=== PATIENT | male | born 1955 | race Caucasian/White ===

== ENCOUNTER 2018-10-15 14:01 | Emergency (ER) | payer MEDICARE ==
[2018-10-15] MEDS ORDERED: KETOROLAC 30 MG/ML 1 ML VIAL IVP STA (14:49)
[2018-10-15] MEDS ORDERED: ONDANSETRON 4 MG/2 ML VIAL IVP STA (14:49)
[2018-10-15] MEDS ORDERED: SODIUM CHLORIDE 0.9% 1,000 ML IV STA (14:49)
--- NOTE | 2018-10-15 14:53 | ED ---
General Adult HPI - General Stated complaint: Flank pain Time Seen by Provider: 10/15/18 14:05 Source: RN notes reviewed - History of Present Illness Initial comments: This is a 62-year-old male who has a past medical history significant for kidney stone. Patient comes in today with left flank pain going up up to the CVA area on the right. Patient states it made him nauseated and he has been vomiting. Patient states the same pain he had when he had a kidney stone a few years ago. Patient denies any diarrhea. Patient denies any anterior abdominal pain. Patient denies any fever chills per patient denies chest pain difficulty breathing or shortness of breath. Patient denies any dysuria hematuria urinary frequency. - Related Data Home Medications Medication Instructions Recorded Confirmed Omeprazole 40 mg PO AC-BRKFST 07/12/14 10/15/18 Aspirin EC [Ecotrin Low Dose] 81 mg PO DAILY 10/15/18 10/15/18 [place]-3 Fatty Acids/Fish Oil [Fish 1 cap PO DAILY 10/15/18 10/15/18 Oil 1,000 mg Softgel] Warfarin [Coumadin] 5 mg PO SUMOTUTHFRSA 10/15/18 10/15/18 Previous Rx's Medication Instructions Recorded Ketorolac [Toradol] 10 mg PO Q6HR #15 tab 10/15/18 Ondansetron Odt [Zofran Odt] 4 mg PO Q8HR PRN #10 tab 10/15/18 Tamsulosin [Flomax] 0.4 mg PO DAILY #10 cap 10/15/18 Allergies Allergy/AdvReac Type Severity Reaction Status Date / Time Penicillins Allergy Unknown Verified 10/15/18 14:56 Review of Systems ROS Statement: Those systems with pertinent positive or pertinent negative responses have been documented in the HPI. ROS Other: All systems not noted in ROS Statement are negative. Past Medical History Past Medical History: COPD, GERD/Reflux Additional Past Medical History / Comment(s): DYSPHAGIA, RECENT BRONCHITIS History of Any Multi-Drug Resistant Organisms: None Reported Past Surgical History: Orthopedic Surgery Additional Past Surgical History / Comment(s): ORIF RIGHT WRIST Past Anesthesia/Blood Transfusion Reactions: No Reported Reaction Past Psychological History: No Psychological Hx Reported Smoking Status: Former smoker Past Alcohol Use History: None Reported, Occasional Past Drug Use History: None Reported General Exam - General Exam Comments Initial Comments: GENERAL: Patient is well-developed and well-nourished. Patient is nontoxic and well- hydrated and is in moderate distress. ENT: Neck is soft and supple. No significant lymphadenopathy is noted. Oropharynx i s clear. Moist mucous membranes. Neck has full range of motion without eliciting any pain. EYES: The sclera were anicteric and conjunctiva were pink and moist. Extraocular movements were intact and pupils were equal round and reactive to light. Eyelids were unremarkable. PULMONARY: Unlabored respirations. Good breath sounds bilaterally. No audible rales rhonchi or wheezing was noted. CARDIOVASCULAR: There is a regular rate and rhythm without any murmurs gallops or rubs. ABDOMEN: Soft and nontender with normal bowel sounds. SKIN: Skin is clear with no lesions or rashes and otherwise unremarkable. NEUROLOGIC: Patient is alert and oriented x3. Cranial nerves II through XII are grossly intact. Motor and sensory are also intact. Normal speech, volume and content. Symmetrical smile. MUSCULOSKELETAL: Normal extremities with adequate strength and full range of motion. LYMPHATICS: No significant lymphadenopathy is noted PSYCHIATRIC: Normal psychiatric evaluation. Course Vital Signs 10/15/18 14:52 Temperature 98 F Pulse Rate 71 Respiratory 18 Rate Blood Pressure 126/84 O2 Sat by Pulse 96 Oximetry Medical Decision Making - Medical Decision Making KUB shows no acute abnormality Patient got Toradol emergency department I reevaluated the patient he was in no pain whatsoever. - Lab Data Result diagrams: 10/15/18 15:05 10/15/18 15:05 Lab Results 10/15/18 10/15/18 10/15/18 Range/Units 15:05 15:05 15:05 WBC 5.3 (3.8-10.6) k/uL RBC 4.32 (4.30-5.90) m/uL Hgb 13.4 (13.0-17.5) gm/dL Hct 40.0 (39.0-53.0) % MCV 92.7 (80.0-100.0) fL MCH 30.9 (25.0-35.0) pg MCHC 33.4 (31.0-37.0) g/dL RDW 13.2 (11.5-15.5) % Plt Count 231 (150-450) k/uL Neutrophils % 65 % Lymphocytes % 24 % Monocytes % 6 % Eosinophils % 2 % Basophils % 1 % Neutrophils # 3.4 (1.3-7.7) k/uL Lymphocytes # 1.3 (1.0-4.8) k/uL Monocytes # 0.3 (0-1.0) k/uL Eosinophils # 0.1 (0-0.7) k/uL Basophils # 0.0 (0-0.2) k/uL Sodium 140 (137-145) mmol/L Potassium 4.1 (3.5-5.1) mmol/L Chloride 109 H (98-107) mmol/L Carbon Dioxide 22 (22-30) mmol/L Anion Gap 9 mmol/L BUN 14 (9-20) mg/dL Creatinine 0.89 (0.66-1.25) mg/dL Est GFR (CKD-EPI)AfAm >90 (>60 ml/min/1.73 sqM) Est GFR (CKD-EPI)NonAf >90 (>60 ml/min/1.73 sqM) Glucose 95 (74-99) mg/dL Calcium 9.3 (8.4-10.2) mg/dL Total Bilirubin 0.6 (0.2-1.3) mg/dL AST 31 (17-59) U/L ALT 33 (21-72) U/L Alkaline Phosphatase 82 (38-126) U/L Total Protein 7.7 (6.3-8.2) g/dL Albumin 4.3 (3.5-5.0) g/dL Amylase 45 (30-110) U/L Lipase 123 (23-300) U/L Urine Color Yellow Urine Appearance Clear (Clear) Urine pH 5.5 (5.0-8.0) Ur Specific [place] 1.025 (1.001-1.035) Urine Protein 1+ H (Negative) Urine Glucose (UA) Negative (Negative) Urine Ketones Negative (Negative) Urine Blood Moderate H (Negative) Urine Nitrite Negative (Negative) Urine Bilirubin Negative (Negative) Urine Urobilinogen <2.0 (<2.0) mg/dL Ur Leukocyte Esterase Negative (Negative) Urine RBC 172 H (0-5) /hpf Urine WBC 2 (0-5) /hpf Urine Mucus Many H (None) /hpf Disposition Clinical Impression: Kidney stone on right side Disposition: HOME SELF-CARE Condition: Good Instructions (If sedation given, give patient instructions): Kidney Stones (ED) Prescriptions: Tamsulosin [Flomax] 0.4 mg PO DAILY #10 cap Ketorolac [Toradol] 10 mg PO Q6HR #15 tab Ondansetron Odt [Zofran Odt] 4 mg PO Q8HR PRN #10 tab PRN Reason: Nausea Is patient prescribed a controlled substance at d/c from ED?: No Referrals: Gregory Giron MD [Primary Care Provider] - 1-2 days Time of Disposition: 15:50
[2018-10-15 14:55] VITALS: BP 126/84; TEMP 98
[2018-10-15 15:25] LABS: Basophils % (A) 1 %; Eosinophils # (A) 0.1 k/uL (0-0.7); Eosinophils % (A) 2 %; HGB 13.4 gm/dL (13.0-17.5); Lymphocytes # (A) 1.3 k/uL (1.0-4.8); Lymphocytes % (A) 24 %; MCH 30.9 pg (25.0-35.0); MCHC 33.4 g/dL (31.0-37.0); MCV 92.7 fL (80.0-100.0); Monocytes # (A) 0.3 k/uL (0-1.0); Monocytes % (A) 6 %; Neutrophils # (A) 3.4 k/uL (1.3-7.7); Neutrophils % (A) 65 %; Platelet Count 231 k/uL (150-450); RBC 4.32 m/uL (4.30-5.90); RDW 13.2 % (11.5-15.5); WBC 5.3 k/uL (3.8-10.6)
[2018-10-15 15:29] LABS: Appearance,Urine Clear (Clear); Bilirubin,Urine Negative (Negative); Blood,Urine Moderate (Negative); Color,Urine Yellow; Glucose,Urine (UA) Negative (Negative); Ketones,Urine Negative (Negative); Leukocyte Esterase,Urine Negative (Negative); Mucus,Urine Many /hpf; Nitrite,Urine Negative (Negative); PH, Urine 5.5 (5.0-8.0); Protein,Urine 1+ (Negative); RBC,Urine 172 /hpf (0-5); Specific Gravity,Urine 1.025 (1.001-1.035); Urobilinogen,Urine <2.0 mg/dL (<2.0); WBC,Urine 2 /hpf (0-5)
[2018-10-15 15:44] LABS: ALT 33 U/L (21-72); AST 31 U/L (17-59); African American GFR (CKD) >90 (>60 ml/min/1.73 sqM); Albumin 4.3 g/dL (3.5-5.0); Alkaline Phosphatase 82 U/L (38-126); Amylase 45 U/L (30-110); Anion Gap 9 mmol/L; Blood Urea Nitrogen 14 mg/dL (9-20); Calcium 9.3 mg/dL (8.4-10.2); Carbon Dioxide 22 mmol/L (22-30); Chloride 109 mmol/L (98-107); Glucose 95 mg/dL (74-99); Lipase 123 U/L (23-300); Potassium 4.1 mmol/L (3.5-5.1); Sodium 140 mmol/L (137-145); Total Bilirubin 0.6 mg/dL (0.2-1.3); Total Protein 7.7 g/dL (6.3-8.2)
--- NOTE | 2018-10-15 15:53 | XR ---
EXAMINATION TYPE: XR KUB DATE OF EXAM: 10/15/2018 COMPARISON: 11/14/2014 HISTORY: Right flank pain TECHNIQUE: 2 views upright FINDINGS: There is no sign of intestinal obstruction or pneumoperitoneum. Fecal pattern is normal. Th ere is a 1 cm calcification over the right mid abdomen that is over the lower pole right kidney. Ther e is mild infiltrate and atelectasis at the right lung base. IMPRESSION: Calcification on the right side. Proximal right ureteral calculus not excluded. Right bas ilar atelectasis. No free air.
[2018-10-15 16:44] VITALS: PULSE 60; RESP 16
== END 2018-10-15 16:57 | disposition home or self-care (01) ==
LOC: EC 14:01
DX: N20.0 Calculus of kidney (principal); K21.9 Gastro-esophageal reflux disease without esophagitis; Z87.891 Personal history of nicotine dependence; Z79.01 Long term (current) use of anticoagulants; Z79.82 Long term (current) use of aspirin; Z79.899 Other long term (current) drug therapy; Z88.0 Allergy status to penicillin
CPT/HCPCS: 36415; 80053; 82150; 83690; 85025; 81001; 74018; 99284; 96374; 96375; 96361; J2405; J1885

== ENCOUNTER 2018-12-26 11:30 | Emergency (ER) | payer MEDICARE ==
[2018-12-26 11:58] VITALS: TEMP 98
--- NOTE | 2018-12-26 11:59 | ED ---
URI HPI - General Chief Complaint: Upper Respiratory Infection Stated Complaint: Cough/congestion Time Seen by Provider: 12/26/18 11:59 Source: patient Mode of arrival: ambulatory Limitations: no limitations - History of Present Illness Initial Comments: 63-year-old male presented for chief complaint of sinus pressure, cough congestion 9 days. Patient states her roughly about the past 9-10 days he has had persisting cough. He states at times is productive mostly dry. Patient denies any medications. Patient states also that around the time that the cough began he had some ear pressure sinus pressure and a sore throat. He states the symptoms have subsided aside from the congestion of the nares and the cough. Patient states he has not been coughing up blood he denies any chest pain or shortness of breath. Patient states she has been seen by his primary care provider and prescribed medications which she is unsure what they are. He states he has not been giving any steroids butwas given a cough suppressant he believes it containing codeine. Patient states that this prescription was $50 he is unable to fill it. Patient presents today for persisting cough. Patient denies any recent travel leg swelling arm pain back pain neck stiffness or fevers. Remaining review of system negative. Upon arrival patient appears well signs of acute distress vital signs within acceptable limits - Related Data Home Medications Medication Instructions Recorded Confirmed Omeprazole 40 mg PO HS 07/12/14 12/26/18 Aspirin EC [Ecotrin Low Dose] 81 mg PO HS 10/15/18 12/26/18 [place]-3 Fatty Acids/Fish Oil [Fish 1 cap PO HS 10/15/18 12/26/18 Oil 1,000 mg Softgel] Warfarin [Coumadin] 5 mg PO SUMOTUTHFRSA@2100 10/15/18 12/26/18 Previous Rx's Medication Instructions Recorded Azithromycin [Zithromax Z-pack] 0 mg PO DIRECTED #6 tab 12/26/18 Benzonatate [Tessalon Perles] 100 mg PO TID 7 Days #21 cap 12/26/18 predniSONE 20 mg PO BID 4 Days #8 tab 12/26/18 Allergies Allergy/AdvReac Type Severity Reaction Status Date / Time Penicillins Allergy Unknown Verified 12/26/18 12:21 Review of Systems ROS Statement: Those systems with pertinent positive or pertinent negative responses have been documented in the HPI. ROS Other: All systems not noted in ROS Statement are negative. Past Medical History Past Medical History: COPD, GERD/Reflux Additional Past Medical History / Comment(s): DYSPHAGIA, RECENT BRONCHITIS History of Any Multi-Drug Resistant Organisms: None Reported Past Surgical History: Orthopedic Surgery Additional Past Surgical History / Comment(s): ORIF RIGHT WRIST Past Anesthesia/Blood Transfusion Reactions: No Reported Reaction Past Psychological History: No Psychological Hx Reported Smoking Status: Former smoker Past Alcohol Use History: Occasional Past Drug Use History: None Reported General Exam - General Exam Comments Initial Comments: General: The patient is awake and alert, in no distress, and does not appear acutely ill. Eye: +3 mm pupils are equal, round and reactive to light, extra-ocular movements are intact. No nystagmus. There is normal conjunctiva bilaterally. No signs of icterus. No photophobia Ears, nose, mouth and throat: There are moist mucous membranes and no oral lesions. Oropharynx was not erythematous there is no tonsillar enlargement exudates or lesions. Uvula midline. Tympanic membranes are not erythematous or is no effusions bulging or retraction. No tenderness to palpation of the mastoid. No anterior cervical lymphadenopathy. Rhinorrhea, clear and bilateral nares. No tripoding, no drooling. Neck: The neck is supple, there is no tenderness or JVD. No nuchal rigidity negative Cardiovascular: There is a regular rate and rhythm. No murmur, rub or gallop is appreciated. Respiratory: Respirations are non-labored, breath sounds are equal. Minimal but present expiratory wheeze. No noted stridor, rales, or rhonchi. No retractions or abdominal breathing. Gastrointestinal: Soft, non-distended, non-tender abdomen without masses or organomegaly noted. There is no rebound or guarding present. Bowel sounds are unremarkable. Musculoskeletal: Normal ROM, no tenderness. Strength 5/5. Sensation intact. Radial pulses equal bilaterally 2+. Neurological: A&O x 3. CN II-XII intact grossly, There are no obvious motor or sensory deficits. Coordination appears grossly intact. Speech appears normal, no muffling. Skin: Skin is warm and dry and no rashes or lesions are noted. No extremity edema Psychiatric: Cooperative Limitations: no limitations Course Vital Signs 12/26/18 12/26/18 12/26/18 11:56 13:31 13:37 Temperature 98.0 F Pulse Rate 73 76 80 Respiratory 18 Rate Blood Pressure 124/85 O2 Sat by Pulse 98 Oximetry 12/26/18 14:00 Temperature 98.0 F Pulse Rate 88 Respiratory 20 Rate Blood Pressure 126/78 O2 Sat by Pulse 97 Oximetry Medical Decision Making - Medical Decision Making 63-year-old male who is obvious upper respiratory symptoms including cough on exam as well as nasal congestion presented for evaluation of persistent cough. Patient states she did have a sore throat and ear pressure at the onset of the cough. Patient's lung sounds are mostly clear aside from a slight expiratory wheeze. Patient is given 1 DuoNeb treatment and this resolved. Patient does state his history of COPD. Patient has been afebrile. No leukocytosis. Chest x-ray does not appear to have good inspiration however there is signs consistent with a possible bronchitis versus asthma versus atypical pneumonia. Patient be started on azithromycin. I have more suspicion towards bronchitis rather than pneumonia though at this time. Patient is provided [facility] on the emergency department and given outpatient prescription for prednisone. In addition patient is provided prescription for Tessalon Perles as I feel this is more economically feasible as patient cannot afford the promethazine with codeine previously prescribed by his primary care provider. Patient denies a chest pain or shortness of breath there is no leg swelling on examination no irregular heart rhythm appreciated. Patient does appear slightly subtherapeutic on his Coumadin. Recommended primary care follow-up. After discussing casement any provider Dr. Doherty with the patient still for discharge with outpatient primary care follow-up. Patient is agreeable to this care plan discharge at this time. - Lab Data Result diagrams: 12/26/18 12:30 12/26/18 12:30 Lab Results 12/26/18 12/26/18 12/26/18 Range/Units 12:30 12:30 12:30 WBC 6.4 (3.8-10.6) k/uL RBC 4.71 (4.30-5.90) m/uL Hgb 14.6 (13.0-17.5) gm/dL Hct 42.9 (39.0-53.0) % MCV 91.1 (80.0-100.0) fL MCH 31.0 (25.0-35.0) pg MCHC 34.0 (31.0-37.0) g/dL RDW 12.6 (11.5-15.5) % Plt Count 279 (150-450) k/uL Neutrophils % 61 % Lymphocytes % 28 % Monocytes % 7 % Eosinophils % 1 % Basophils % 1 % Neutrophils # 3.9 (1.3-7.7) k/uL Lymphocytes # 1.8 (1.0-4.8) k/uL Monocytes # 0.4 (0-1.0) k/uL Eosinophils # 0.1 (0-0.7) k/uL Basophils # 0.1 (0-0.2) k/uL PT 16.6 H (9.0-12.0) sec INR 1.7 H (<1.2) Sodium 139 (137-145) mmol/L Potassium 4.4 (3.5-5.1) mmol/L Chloride 104 (98-107) mmol/L Carbon Dioxide 25 (22-30) mmol/L Anion Gap 10 mmol/L BUN 14 (9-20) mg/dL Creatinine 0.93 (0.66-1.25) mg/dL Est GFR (CKD-EPI)AfAm >90 (>60 ml/min/1.73 sqM) Est GFR (CKD-EPI)NonAf 88 (>60 ml/min/1.73 sqM) Glucose 77 (74-99) mg/dL Calcium 9.8 (8.4-10.2) mg/dL Disposition Clinical Impression: Upper respiratory infection, Cough, Congested nose Disposition: HOME SELF-CARE Condition: Good Instructions (If sedation given, give patient instructions): Upper Respiratory Infection (ED) Additional Instructions: Please use medication as discussed. Please follow-up with family doctor in the next 2 days.. Please return to emergency room if the symptoms increase or worsen or for any other concerns. Prescriptions: predniSONE 20 mg PO BID 4 Days #8 tab Benzonatate [Tessalon Perles] 100 mg PO TID 7 Days #21 cap Azithromycin [Zithromax Z-pack] 0 mg PO DIRECTED #6 tab Is patient prescribed a controlled substance at d/c from ED?: No Referrals: Gregory Giron MD [Primary Care Provider] - 1-2 days Time of Disposition: 14:06
[2018-12-26 12:44] LABS: Basophils # (A) 0.1 k/uL (0-0.2); Basophils % (A) 1 %; Eosinophils # (A) 0.1 k/uL (0-0.7); Eosinophils % (A) 1 %; HCT 42.9 % (39.0-53.0); HGB 14.6 gm/dL (13.0-17.5); Lymphocytes # (A) 1.8 k/uL (1.0-4.8); Lymphocytes % (A) 28 %; MCV 91.1 fL (80.0-100.0); Mean Platelet Volume 6.2; Monocytes # (A) 0.4 k/uL (0-1.0); Monocytes % (A) 7 %; Neutrophils # (A) 3.9 k/uL (1.3-7.7); Neutrophils % (A) 61 %; Platelet Count 279 k/uL (150-450); RBC 4.71 m/uL (4.30-5.90); RDW 12.6 % (11.5-15.5); WBC 6.4 k/uL (3.8-10.6)
[2018-12-26 12:49] LABS: INR 1.7 (<1.2); Prothrombin Time 16.6 sec (9.0-12.0)
[2018-12-26 12:54] LABS: African American GFR (CKD) >90 (>60 ml/min/1.73 sqM); Anion Gap 10 mmol/L; Blood Urea Nitrogen 14 mg/dL (9-20); Calcium 9.8 mg/dL (8.4-10.2); Carbon Dioxide 25 mmol/L (22-30); Chloride 104 mmol/L (98-107); Glucose 77 mg/dL (74-99); Potassium 4.4 mmol/L (3.5-5.1); Sodium 139 mmol/L (137-145)
--- NOTE | 2018-12-26 13:17 | XR ---
EXAMINATION TYPE: XR chest 2V DATE OF EXAM: 12/26/2018 COMPARISON: None HISTORY: 63-year-old male persistent productive cough, rule out pneumonia TECHNIQUE: PA and lateral views FINDINGS: Heart normal size. Aorta and pulmonary vasculature within normal limits. Strandy areas of atelectasis mid and lower lungs. Interstitial prominence. No consolidation or pleural effusion. IMPRESSION: Interstitial densities could reflect bronchitis, asthma, or atypical pneumonias. Strandy atelectasis in the lower lungs.
[2018-12-26] MEDS ORDERED: IPRATROPIUM-ALBUTEROL 3 ML NEB INHALATION STA (13:24)
[2018-12-26] MEDS ORDERED: methylPREDNISolone SOD SUCCI 125 MG/2 ML VIAL IV STA (13:24)
[2018-12-26 14:23] VITALS: BP 126/78; PULSE 88; RESP 20
== END 2018-12-26 14:24 | disposition home or self-care (01) ==
LOC: EC 11:30
DX: J06.9 Acute upper respiratory infection, unspecified (principal); K21.9 Gastro-esophageal reflux disease without esophagitis; Z87.891 Personal history of nicotine dependence; Z88.0 Allergy status to penicillin; Z79.01 Long term (current) use of anticoagulants; Z79.82 Long term (current) use of aspirin; Z79.899 Other long term (current) drug therapy
CPT/HCPCS: 36415; 94640; 80048; 85025; 85610; 71046; 99284; 96374; J2930

== ENCOUNTER 2021-01-06 17:00 | Observation (INO) | payer MEDICARE ==
[2021-01-06] MEDS ORDERED: SODIUM CHLORIDE 0.9% 1,000 ML IV STA (18:38)
[2021-01-06] MEDS ORDERED: ACETAMINOPHEN TAB 500 MG TAB PO STA (18:39)
--- NOTE | 2021-01-06 18:42 | ED ---
General Adult HPI - General Chief complaint: Weakness Stated complaint: Wants covid test Time Seen by Provider: 01/06/21 18:25 Source: patient, RN notes reviewed Mode of arrival: ambulatory Limitations: no limitations - History of Present Illness Initial comments: Patient is a pleasant 65-year-old male presenting to the emergency department for fatigue and concern for possible COVID-19 infection. Onset of symptoms was several days ago. Patient feels weak all over and fatigued. Patient has myalgias. Patient has chills and believes he is having fevers. Mild cough. Patient does have headaches. No loss of taste or smell. - Related Data Home Medications Medication Instructions Recorded Confirmed Aspirin EC [Ecotrin Low Dose] 81 mg PO HS 10/15/18 01/06/21 [place]-3 Fatty Acids/Fish Oil [Fish 1 cap PO HS 10/15/18 01/06/21 Oil 1,000 mg Softgel] Warfarin [Coumadin] 5 mg PO SUMOTUTHFRSA@2100 10/15/18 01/06/21 Omeprazole Magnesium [PriLOSEC OTC] 20 mg PO HS 01/06/21 01/06/21 Allergies Allergy/AdvReac Type Severity Reaction Status Date / Time Penicillins Allergy Unknown Verified 01/06/21 20:14 Review of Systems ROS Statement: Those systems with pertinent positive or pertinent negative responses have been documented in the HPI. ROS Other: All systems not noted in ROS Statement are negative. Constitutional: Reports: as per HPI, chills Eyes: Denies: eye pain ENT: Denies: ear pain Respiratory: Reports: as per HPI Endocrine: Reports: fatigue Gastrointestinal: Denies: abdominal pain Genitourinary: Denies: dysuria Skin: Denies: rash Neurological: Reports: as per HPI, headache Past Medical History Past Medical History: COPD, GERD/Reflux Additional Past Medical History / Comment(s): DYSPHAGIA, RECENT BRONCHITIS History of Any Multi-Drug Resistant Organisms: None Reported Past Surgical History: Orthopedic Surgery Additional Past Surgical History / Comment(s): ORIF RIGHT WRIST Past Anesthesia/Blood Transfusion Reactions: No Reported Reaction Past Psychological History: No Psychological Hx Reported Smoking Status: Former smoker Past Alcohol Use History: Occasional Past Drug Use History: None Reported General Exam Limitations: no limitations General appearance: alert, in no apparent distress Head exam: Present: normocephalic Eye exam: Present: normal appearance, PERRL, EOMI ENT exam: Present: normal oropharynx Neck exam: Present: normal inspection. Absent: tenderness, meningismus Respiratory exam: Present: normal lung sounds bilaterally Cardiovascular Exam: Present: tachycardia GI/Abdominal exam: Present: soft. Absent: tenderness Extremities exam: Present: normal inspection. Absent: pedal edema, calf tenderness Neurological exam: Present: alert Psychiatric exam: Present: normal affect, normal mood Skin exam: Present: normal color Course Vital Signs 01/06/21 01/06/21 17:58 19:30 Temperature 99.5 F 101.9 F H Pulse Rate 117 H 114 H Respiratory 20 22 Rate Blood Pressure 137/84 108/71 O2 Sat by Pulse 94 L 92 L Oximetry EKG Findings - EKG Comments: EKG Findings:: Sinus tachycardia with a rate of 118. ME 168. QRS 88. QT 298. QTC 417. Normal axis. Normal QRS. Repolarization changes. Medical Decision Making - Medical Decision Making Patient reevaluated and is feeling better following fluids and Tylenol. Patient updated on results and plan. Case was again discussed with Dr. River who did review the EKG and feels likely repolarization changes versus pericarditis. He does not recommend further anticoagulation at this time. Patient states he does occasionally drink alcohol. Ultrasound will be ordered to evaluate for possible bladder disease. Case was also discussed with Dr. Giron, who will admit his patient. - Lab Data Result diagrams: 01/06/21 18:55 01/06/21 18:55 Lab Results 01/06/21 01/06/21 01/06/21 Range/Units 18:55 18:55 18:55 WBC 12.1 H (3.8-10.6) k/uL RBC 4.64 (4.30-5.90) m/uL Hgb 15.4 (13.0-17.5) gm/dL Hct 45.5 (39.0-53.0) % MCV 97.9 (80.0-100.0) fL MCH 33.3 (25.0-35.0) pg MCHC 34.0 (31.0-37.0) g/dL RDW 12.7 (11.5-15.5) % Plt Count 235 (150-450) k/uL MPV 7.2 Neutrophils % 87 % Lymphocytes % 7 % Monocytes % 6 % Eosinophils % 0 % Basophils % 0 % Neutrophils # 10.5 H (1.3-7.7) k/uL Lymphocytes # 0.8 L (1.0-4.8) k/uL Monocytes # 0.7 (0-1.0) k/uL Eosinophils # 0.0 (0-0.7) k/uL Basophils # 0.0 (0-0.2) k/uL PT 16.0 H (9.0-12.0) sec INR 1.6 H (<1.2) APTT 29.5 (22.0-30.0) sec Sodium 132 L (137-145) mmol/L Potassium 4.3 (3.5-5.1) mmol/L Chloride 101 (98-107) mmol/L Carbon Dioxide 19 L (22-30) mmol/L Anion Gap 12 mmol/L BUN 14 (9-20) mg/dL Creatinine 0.96 (0.66-1.25) mg/dL Est GFR (CKD-EPI)AfAm >90 (>60 ml/min/1.73 sqM) Est GFR (CKD-EPI)NonAf 84 (>60 ml/min/1.73 sqM) Glucose 129 H (74-99) mg/dL Plasma Lactic Acid Josef (0.7-2.0) mmol/L Calcium 9.6 (8.4-10.2) mg/dL Total Bilirubin 2.6 H (0.2-1.3) mg/dL AST 77 H (17-59) U/L ALT 89 H (4-49) U/L Alkaline Phosphatase 157 H (38-126) U/L Troponin I (0.000-0.034) ng/mL Total Protein 8.0 (6.3-8.2) g/dL Albumin 4.3 (3.5-5.0) g/dL Coronavirus (PCR) (Not Detectd) 01/06/21 01/06/21 01/06/21 Range/Units 18:55 18:55 18:59 WBC (3.8-10.6) k/uL RBC (4.30-5.90) m/uL Hgb (13.0-17.5) gm/dL Hct (39.0-53.0) % MCV (80.0-100.0) fL MCH (25.0-35.0) pg MCHC (31.0-37.0) g/dL RDW (11.5-15.5) % Plt Count (150-450) k/uL MPV Neutrophils % % Lymphocytes % % Monocytes % % Eosinophils % % Basophils % % Neutrophils # (1.3-7.7) k/uL Lymphocytes # (1.0-4.8) k/uL Monocytes # (0-1.0) k/uL Eosinophils # (0-0.7) k/uL Basophils # (0-0.2) k/uL PT (9.0-12.0) sec INR (<1.2) APTT (22.0-30.0) sec Sodium (137-145) mmol/L Potassium (3.5-5.1) mmol/L Chloride (98-107) mmol/L Carbon Dioxide (22-30) mmol/L Anion Gap mmol/L BUN (9-20) mg/dL Creatinine (0.66-1.25) mg/dL Est GFR (CKD-EPI)AfAm (>60 ml/min/1.73 sqM) Est GFR (CKD-EPI)NonAf (>60 ml/min/1.73 sqM) Glucose (74-99) mg/dL Plasma Lactic Acid Josef 1.2 (0.7-2.0) mmol/L Calcium (8.4-10.2) mg/dL Total Bilirubin (0.2-1.3) mg/dL AST (17-59) U/L ALT (4-49) U/L Alkaline Phosphatase (38-126) U/L Troponin I 0.370 H* (0.000-0.034) ng/mL Total Protein (6.3-8.2) g/dL Albumin (3.5-5.0) g/dL Coronavirus (PCR) Not Detected (Not Detectd) - Radiology Data Radiology results: image reviewed (Chest x-ray shows no acute process. Atel ectasis) Disposition Clinical Impression: Fever Disposition: ADMITTED IP TO THIS [facility] Condition: Serious Is patient prescribed a controlled substance at d/c from ED?: No Referrals: Gregory Giron MD [Primary Care Provider] - 1-2 days Decision Time: 20:21
[2021-01-06 19:08] LABS: Basophils % (A) 0 %; Eosinophils % (A) 0 %; HCT 45.5 % (39.0-53.0); HGB 15.4 gm/dL (13.0-17.5); Lymphocytes # (A) 0.8 k/uL (1.0-4.8); Lymphocytes % (A) 7 %; MCH 33.3 pg (25.0-35.0); MCV 97.9 fL (80.0-100.0); Mean Platelet Volume 7.2; Monocytes # (A) 0.7 k/uL (0-1.0); Monocytes % (A) 6 %; Neutrophils # (A) 10.5 k/uL (1.3-7.7); Neutrophils % (A) 87 %; Platelet Count 235 k/uL (150-450); RBC 4.64 m/uL (4.30-5.90); RDW 12.7 % (11.5-15.5); WBC 12.1 k/uL (3.8-10.6)
[2021-01-06 19:16] LABS: ALT 89 U/L (4-49); AST 77 U/L (17-59); African American GFR (CKD) >90 (>60 ml/min/1.73 sqM); Albumin 4.3 g/dL (3.5-5.0); Alkaline Phosphatase 157 U/L (38-126); Anion Gap 12 mmol/L; Blood Urea Nitrogen 14 mg/dL (9-20); Calcium 9.6 mg/dL (8.4-10.2); Carbon Dioxide 19 mmol/L (22-30); Chloride 101 mmol/L (98-107); Glucose 129 mg/dL (74-99); Non-African American GFR(CKD) 84 (>60 ml/min/1.73 sqM); Potassium 4.3 mmol/L (3.5-5.1); Sodium 132 mmol/L (137-145); Total Bilirubin 2.6 mg/dL (0.2-1.3)
[2021-01-06 19:23] LABS: INR 1.6 (<1.2); Partial Thromboplastin Time 29.5 sec (22.0-30.0)
--- NOTE | 2021-01-06 19:25 | XR ---
EXAMINATION TYPE: XR chest 2V DATE OF EXAM: 01/06/2021 COMPARISON: 12/26/2018 HISTORY: Weakness TECHNIQUE: FINDINGS: Heart is normal. Lungs are clear of infiltrate. There is no heart failure. There is some mi ld atelectasis at the lung bases. There are no hilar masses. Bony thorax is intact. . IMPRESSION: There is some mild atelectasis at the lung bases which is new compared to old exam
[2021-01-06] MEDS ORDERED: LEVOFLOXACIN 750MG-D5W PMX 750 MG in DEXTROSE/WATER 1 150ML.BAG IVPB STA (20:23)
[2021-01-06] MEDS ORDERED: NALOXONE 0.4 MG/ML 1 ML VIAL IV PRN (20:25)
[2021-01-06] MEDS ORDERED: LEVOFLOXACIN 750MG-D5W PMX 750 MG in DEXTROSE/WATER 1 150ML.BAG IVPB SCH (20:30)
[2021-01-06] MEDS: SODIUM CHLORIDE 0.9% 1,000 ML IV SCH (20:53)
--- NOTE | 2021-01-06 21:16 | US ---
EXAMINATION TYPE: US gallbladder DATE OF EXAM: 01/06/2021 COMPARISON: 11/14/2014 CLINICAL HISTORY: Fever with elevated liver enzymes. Difficult and limited exam due to overlying lacho l gas EXAM MEASUREMENTS: Liver Length: 17.8 cm Gallbladder Wall: 0.2 cm CBD: 0.5 cm Right Kidney: 10.7 x 5.2 x 5.2 cm Pancreas: Obscured by bowel gas Liver: Increased attenuation, decreased visualization of vessels suggestive of fatty infiltrate. Hyp oechoic area adjacent to the gallbladder measuring 1.6 cm, probable fatty focal sparring Gallbladder: No stones visualized Evidence for sonographic Townsend's sign: No CBD: wnl as visualized, distal portion is obscured by bowel gas Right Kidney: No hydronephrosis or masses seen IMPRESSION: No gallstones or dilated ducts. No focal liver defect.
[2021-01-07] MEDS: IBUPROFEN 400 MG TAB PO PRN (00:03)
[2021-01-07 04:13] LABS: Basophils % (A) 0 %; Eosinophils # (A) 0.1 k/uL (0-0.7); Eosinophils % (A) 1 %; HCT 40.1 % (39.0-53.0); HGB 12.9 gm/dL (13.0-17.5); Lymphocytes # (A) 0.8 k/uL (1.0-4.8); Lymphocytes % (A) 8 %; MCHC 32.2 g/dL (31.0-37.0); MCV 99.2 fL (80.0-100.0); Mean Platelet Volume 8.5; Monocytes # (A) 0.7 k/uL (0-1.0); Monocytes % (A) 7 %; Neutrophils # (A) 8.6 k/uL (1.3-7.7); Neutrophils % (A) 83 %; Platelet Count 184 k/uL (150-450); RBC 4.04 m/uL (4.30-5.90); RDW 12.7 % (11.5-15.5); WBC 10.4 k/uL (3.8-10.6)
[2021-01-07 04:30] LABS: Albumin 3.6 g/dL (3.5-5.0); Calcium 8.8 mg/dL (8.4-10.2)
[2021-01-07 07:44] LABS: Appearance,Urine Cloudy (Clear); Bilirubin,Urine 1+ (Negative); Blood,Urine Negative (Negative); Color,Urine Light Brown; Glucose,Urine (UA) Trace (Negative); Hyaline Casts,Urine 359 /lpf (0-2); Ketones,Urine Negative (Negative); Leukocyte Esterase,Urine Negative (Negative); Mucus,Urine Many /hpf; Nitrite,Urine Negative (Negative); PH, Urine 5.5 (5.0-8.0); Protein,Urine 2+ (Negative); RBC,Urine 20 /hpf (0-5); Specific Gravity,Urine 1.034 (1.001-1.035); Urobilinogen,Urine >12.0 mg/dL (<2.0); WBC,Urine 18 /hpf (0-5)
--- NOTE | 2021-01-07 09:58 | ECHOF ---
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 This was a technically good study. The left ventricular size is normal. There is borderline concentric left ventricular hypertrophy. Overall left ventricular systolic function is normal with, an EF between 60 - 65 %. The right ventricle is mildly enlarged. Normal LA size by volume 22+/-6 ml/m2. The right atrium is normal in size. Interatrial and interventricular septum intact. The aortic valve is trileaflet, and appears structurally normal. No aortic stenosis or regurgitation. The mitral valve is normal. The tricuspid valve appears structurally normal. Unable to estimate RVSP due to inadequate TR jet s pectral doppler profile. The pulmonic valve was not well visualized. The aortic root size is normal. Normal inferior vena cava with normal inspiratory collapse consistent with estimated right atrial pre ssure of 5 mmHg. There is a small, generalized pericardial effusion present. CONCLUSIONS -------- 1. The left ventricular size is normal. 2. There is borderline concentric left ventricular hypertrophy. 3. Overall left ventricular systolic function is normal with, an EF between 60 - 65 %. 4. The right ventricle is mildly enlarged. 5. The aortic valve is trileaflet, and appears structurally normal. No aortic stenosis or regurgitati on. 6. There is a small, generalized pericardial effusion present. PASSENGER TRAIN BRAKER: Doris Park RDCS
[2021-01-07] MEDS: SODIUM CHLORIDE 0.9% 1,000 ML IV SCH ×3 (09:59→20:44)
[2021-01-07] MEDS: PANTOPRAZOLE 40 MG/10 ML VIAL IV SCH (10:00)
[2021-01-07] MEDS: LEVOFLOXACIN 750MG-D5W PMX 750 MG in DEXTROSE/WATER 1 150ML.BAG IVPB SCH (10:00)
--- NOTE | 2021-01-07 10:10 | P.CRDCN ---
History of Present Illness Consult date: 01/07/21 History of present illness: HISTORY OF PRESENT ILLNESS: This is a 65-year-old male with a past medical history significant for DVT/PE on Coumadin, GERD, and occasional alcohol use. Patient denies any previous cardiac history and does not follow regularly with a service desk analyst. We have been asked to see the patient in consultation for cardiac evaluation. Patient examined at the bedside in the emergency room. Patient states he came to the hospital with a chief complaint of a headache. Patient also reports having chest pain and her mainly since Wednesday. He states the pain felt like a pressure in the middle of his chest. He denied any radiation of the pain. He denied any shortness of breath. Patient states the pain is significantly worse with deep inspiration. Patient denies any previous stress test or cardiac catheterization. Patient was also noted to be febrile yesterday with a temperature of 101.9. Patient does have a frequent nonproductive cough at the time of my examination. Testing for influenza A and weems virus were negative. Patient reports a family history of coronary artery disease and states his dad had a heart attack. He is unsure at what age but states his dad when he was around 71 so he believes his dad was fairly young when he had a heart attack. EKG reveals sinus tachycardia with early repolarization Chest xray there is some mild atelectasis at the lung bases which is new compared to old exam. Ultrasound gallbladder: No gallstones or dilated ducts. No focal liver defect. Laboratory data: WBC 10.4. Hemoglobin 12.9. Platelet count 184. Sodium 132. Potassium 4.0. BUN 21. Creatinine 1.26. Bilirubin 3.0. AST 80. ALT 97. Troponin 0.370. 0.371. 0.3-9. Current home cardiac medications include aspirin 81 mg daily and warfarin 5 mg Wednesday and Wednesday REVIEW OF SYSTEMS: At the time of my exam: CONSTITUTIONAL: Denies fever or chills. HEENT: Denies blurred vision, vision changes, or eye pain. Denies hemoptysis CARDIOVASCULAR: Reports chest pain. Denies orthopnea. Denies PND. Denies palpitations RESPIRATORY: Denies shortness of breath. Reports cough. GASTROINTESTINAL: Denies abdominal pain. Denies nausea or vomiting. HEMATOLOGIC: Denies bleeding disorders. GENITOURINARY: Denies any blood in urine. SKIN: Denies pruitis. Denies rash. PHYSICAL EXAM: VITAL SIGNS: Reviewed. GENERAL: Well-developed in no acute distress. HEENT: Head is normocephalic. Pupils are equal, round. Sclerae anicteric. Mucous membranes of the mouth are moist. Neck supple. No JVD or thyromegaly LUNGS: Respirations even and unlabored. Lungs essentially clear to auscultation bilaterally. Frequent coughing noted. HEART: Regular rate and rhythm. S1 and S2 heard. ABDOMEN: Soft. Nondistended. Nontender. EXTREMITIES: Normal range of motion. No clubbing or cyanosis. Peripheral pulses intact. No lower extremity edema NEUROLOGIC: Awake and alert. Oriented x 3. ASSESSMENT: Headache Febrile illness Abnormal troponins, can not rule out underlying CAD Acute kidney injury Elevated bilirubin Elevated LFTs History of DVT/PE, on Coumadin GERD Occasional alcohol use PLAN: Obtain 2D echo to assess cardiac structure and function Check INR. Continue anticoagulation with Coumadin. Check D-Dimer Continue IV fluids Further recommendations pending patient course Nurse practitioner note has been reviewed by physician. Signing provider agrees with the documented findings, assessment, and plan of care. Past Medical History Past Medical History: COPD, GERD/Reflux Additional Past Medical History / Comment(s): DYSPHAGIA, RECENT BRONCHITIS History of Any Multi-Drug Resistant Organisms: None Reported Past Surgical History: Orthopedic Surgery Additional Past Surgical History / Comment(s): ORIF RIGHT WRIST Past Anesthesia/Blood Transfusion Reactions: No Reported Reaction Past Psychological History: No Psychological Hx Reported Smoking Status: Former smoker Past Alcohol Use History: Occasional Past Drug Use History: None Reported Medications and Allergies Home Medications Medication Instructions Recorded Confirmed Type Aspirin EC [Ecotrin Low Dose] 81 mg PO HS 10/15/18 01/06/21 History [place]-3 Fatty Acids/Fish Oil [Fish 1 cap PO HS 10/15/18 01/06/21 History Oil 1,000 mg Softgel] Warfarin [Coumadin] 5 mg PO SUMOTUTHFRSA@2100 10/15/18 01/06/21 History Omeprazole Magnesium [PriLOSEC OTC] 20 mg PO HS 01/06/21 01/06/21 History Allergies Allergy/AdvReac Type Severity Reaction Status Date / Time Penicillins Allergy Unknown Verified 01/06/21 20:14 Physical Exam Vitals: Vital Signs Temp Pulse Resp BP Pulse Ox 01/07/21 06:00 98.9 F 88 16 94/72 97 01/07/21 03:00 81 18 85/65 95 01/07/21 00:00 82 18 115/73 97 01/06/21 21:40 98/78 01/06/21 21:00 99.6 F 104 H 95 01/06/21 19:30 101.9 F H 114 H 22 108/71 92 L 01/06/21 17:58 99.5 F 117 H 20 137/84 94 L Intake and Output 01/06/21 01/07/21 01/07/21 22:59 06:59 14:59 Other: Weight 106.594 kg Results 01/07/21 03:22 01/07/21 03:22 Cardiac Enzymes 01/06/21 01/06/21 01/06/21 Range/Units 18:55 18:55 22:23 AST 77 H (17-59) U/L Troponin I 0.370 H* 0.371 H* (0.000-0.034) ng/mL 01/07/21 01/07/21 Range/Units 00:58 03:22 AST 80 H (17-59) U/L Troponin I 0.329 H* (0.000-0.034) ng/mL Coagulation 01/06/21 Range/Units 18:55 PT 16.0 H (9.0-12.0) sec APTT 29.5 (22.0-30.0) sec CBC 01/06/21 01/07/21 Range/Units 18:55 03:22 WBC 12.1 H 10.4 (3.8-10.6) k/uL RBC 4.64 4.04 L (4.30-5.90) m/uL Hgb 15.4 12.9 L (13.0-17.5) gm/dL Hct 45.5 40.1 (39.0-53.0) % Plt Count 235 184 (150-450) k/uL Comprehensive Metabolic Panel 01/06/21 01/07/21 Range/Units 18:55 03:22 Sodium 132 L 132 L (137-145) mmol/L Potassium 4.3 4.0 (3.5-5.1) mmol/L Chloride 101 103 (98-107) mmol/L Carbon Dioxide 19 L 20 L (22-30) mmol/L BUN 14 21 H (9-20) mg/dL Creatinine 0.96 1.26 H (0.66-1.25) mg/dL Glucose 129 H 121 H (74-99) mg/dL Calcium 9.6 8.8 (8.4-10.2) mg/dL AST 77 H 80 H (17-59) U/L ALT 89 H 97 H (4-49) U/L Alkaline Phosphatase 157 H 136 H (38-126) U/L Total Protein 8.0 7.0 (6.3-8.2) g/dL Albumin 4.3 3.6 (3.5-5.0) g/dL Current Medications Generic Name Dose Route Start Last Admin Trade Name Freq PRN Reason Stop Dose Admin Acetaminophen 650 mg 01/06/21 20:25 Acetaminophen Tab 325 Mg Tab PO Q6HR PRN Mild Pain or Fever > 100.5 Sodium Chloride 1,000 mls @ 130 mls/hr 01/06/21 20:30 01/07/21 09:59 Saline 0.9% IV 130 mls/hr .[id number] KATIE Administration Levofloxacin 750 mg/ IV 150 mls @ 100 mls/hr 01/07/21 09:00 01/07/21 10:00 Solution IVPB 100 mls/hr Q24H KATIE Administration Ibuprofen 400 mg 01/06/21 20:25 01/07/21 00:03 Ibuprofen 400 Mg Tab PO 400 mg Q6HR PRN Administration Mild Pain or Fever > 100.5 Naloxone HCl 0.2 mg 01/06/21 20:25 Naloxone 0.4 Mg/Ml 1 Ml Vial IV Q2M PRN Opioid Reversal Pantoprazole Sodium 40 mg 01/07/21 09:00 01/07/21 10:00 Pantoprazole 40 Mg/10 Ml Vial IV 40 mg DAILY KATIE Administration Intake and Output 01/06/21 01/07/21 01/07/21 22:59 06:59 14:59 Other: Weight 106.594 kg 01/07/21 03:22 01/07/21 03:22
[2021-01-07 10:23] LABS: INR 1.3 (<1.2); Prothrombin Time 13.7 sec (9.0-12.0)
[2021-01-07] MEDS ORDERED: HEPARIN SODIUM 1,000 UN/ML (10ML VL) IV ONE (10:42)
[2021-01-07] MEDS ORDERED: HEPARIN SODIUM 1,000 UN/ML (10ML VL) IV PRN (10:42)
[2021-01-07] MEDS ORDERED: HEPARIN SOD,PORK IN 0.45% NACL 25,000 UNIT in 0.45% NACL 1 250ML.BAG IV SCH (10:45)
[2021-01-07] MEDS: ACETAMINOPHEN TAB 325 MG TAB PO PRN ×2 (10:48→20:28)
[2021-01-07] MEDS: COLCHICINE 0.6 MG EACH PO SCH ×2 (12:33→22:33)
[2021-01-07] MEDS: ASPIRIN 81 MG PO SCH (12:37)
[2021-01-07] MEDS ORDERED: IOPAMIDOL CONTRAST (ORAL USE) VIAL PO PRN (12:52)
--- NOTE | 2021-01-07 13:34 | P.HPIM ---
History of Present Illness H&P Date: 01/07/21 Chief Complaint: Chest pain The patient is otherwise lucid and speaking clearly.The patient is a 65-year-old white male who complained of significant chest congestion. He was worried about having pneumonia. Previous history of thromboembolism in the past. However, as time went on, he complained of significant substernal chest pressure. No radiation to the neck no significant diaphoresis stated. Question some mild nausea but it was not severe. Evaluation in the emergency room did not show significant pneumonia Covid test was negative but troponin was elevated. The patient is now being evaluated by cardiology. As far as the chest pain is concerned. There is no palliative maneuver or medications stated. Activity was not necessary provocative to the chest pr essure but it was substernal. Review of Systems Constitutional: Denies chills, Denies fever Eyes: denies blurred vision, denies pain Ears, nose, mouth and throat: Denies headache, Denies sore throat Cardiovascular: Reports as per HPI Gastrointestinal: Denies abdominal pain, Denies diarrhea, Denies nausea, Denies vomiting Musculoskeletal: Denies myalgias Integumentary: Denies pruritus, Denies rash Neurological: Denies numbness, Denies weakness Past Medical History Past Medical History: COPD, GERD/Reflux Additional Past Medical History / Comment(s): DYSPHAGIA, RECENT BRONCHITIS History of Any Multi-Drug Resistant Organisms: None Reported Past Surgical History: Orthopedic Surgery Additional Past Surgical History / Comment(s): ORIF RIGHT WRIST Past Anesthesia/Blood Transfusion Reactions: No Reported Reaction Past Psychological History: No Psychological Hx Reported Smoking Status: Former smoker Past Alcohol Use History: Occasional Past Drug Use History: None Reported Medications and Allergies Home Medications Medication Instructions Recorded Confirmed Type Aspirin EC [Ecotrin Low Dose] 81 mg PO HS 10/15/18 01/06/21 History [place]-3 Fatty Acids/Fish Oil [Fish 1 cap PO HS 10/15/18 01/06/21 History Oil 1,000 mg Softgel] Warfarin [Coumadin] 5 mg PO SUMOTUTHFRSA@2100 10/15/18 01/06/21 History Omeprazole Magnesium [PriLOSEC OTC] 20 mg PO HS 01/06/21 01/06/21 History Allergies Allergy/AdvReac Type Severity Reaction Status Date / Time Penicillins Allergy Unknown Verified 01/06/21 20:14 Physical Exam Vitals: Vital Signs Temp Pulse Resp BP Pulse Ox 01/07/21 10:46 101 H 18 139/84 96 01/07/21 06:00 98.9 F 88 16 94/72 97 01/07/21 03:00 81 18 85/65 95 01/07/21 00:00 82 18 115/73 97 01/06/21 21:40 98/78 01/06/21 21:00 99.6 F 104 H 95 01/06/21 19:30 101.9 F H 114 H 22 108/71 92 L 01/06/21 17:58 99.5 F 117 H 20 137/84 94 L Intake and Output 01/06/21 01/07/21 01/07/21 22:59 06:59 14:59 Other: Weight 106.594 kg - Constitutional General appearance: no acute distress - EENT Eyes: EOMI - Neck Neck: no lymphadenopathy - Respiratory Respiratory: bilateral: CTA - Cardiovascular Rhythm: regular Heart sounds: normal: S1, S2 Abnormal Heart Sounds: no S3 Gallop - Gastrointestinal General gastrointestinal: soft, no tenderness - Integumentary Integumentary: no cellulitis - Psychiatric Psychiatric: A&O x's 3 Results CBC & Chem 7: 01/07/21 03:22 01/07/21 03:22 Labs: Abnormal Lab Results - Last 24 Hours (Table) 01/06/21 01/06/21 01/06/21 Range/Units 18:55 18:55 18:55 WBC 12.1 H (3.8-10.6) k/uL RBC (4.30-5.90) m/uL Hgb (13.0-17.5) gm/dL Neutrophils # 10.5 H (1.3-7.7) k/uL Lymphocytes # 0.8 L (1.0-4.8) k/uL PT 16.0 H (9.0-12.0) sec INR 1.6 H (<1.2) D-Dimer (<0.60) mg/L FEU Sodium 132 L (137-145) mmol/L Carbon Dioxide 19 L (22-30) mmol/L BUN (9-20) mg/dL Creatinine (0.66-1.25) mg/dL Glucose 129 H (74-99) mg/dL Total Bilirubin 2.6 H (0.2-1.3) mg/dL AST 77 H (17-59) U/L ALT 89 H (4-49) U/L Alkaline Phosphatase 157 H (38-126) U/L Troponin I (0.000-0.034) ng/mL Urine Protein (Negative) Urine Glucose (UA) (Negative) Urine Bilirubin (Negative) Urine RBC (0-5) /hpf Urine WBC (0-5) /hpf Hyaline Casts (0-2) /lpf Urine Mucus (None) /hpf 01/06/21 01/06/21 01/07/21 Range/Units 18:55 22:23 00:58 WBC (3.8-10.6) k/uL RBC (4.30-5.90) m/uL Hgb (13.0-17.5) gm/dL Neutrophils # (1.3-7.7) k/uL Lymphocytes # (1.0-4.8) k/uL PT (9.0-12.0) sec INR (<1.2) D-Dimer (<0.60) mg/L FEU Sodium (137-145) mmol/L Carbon Dioxide (22-30) mmol/L BUN (9-20) mg/dL Creatinine (0.66-1.25) mg/dL Glucose (74-99) mg/dL Total Bilirubin (0.2-1.3) mg/dL AST (17-59) U/L ALT (4-49) U/L Alkaline Phosphatase (38-126) U/L Troponin I 0.370 H* 0.371 H* 0.329 H* (0.000-0.034) ng/mL Urine Protein (Negative) Urine Glucose (UA) (Negative) Urine Bilirubin (Negative) Urine RBC (0-5) /hpf Urine WBC (0-5) /hpf Hyaline Casts (0-2) /lpf Urine Mucus (None) /hpf 01/07/21 01/07/21 01/07/21 Range/Units 03:22 03:22 07:15 WBC (3.8-10.6) k/uL RBC 4.04 L (4.30-5.90) m/uL Hgb 12.9 L (13.0-17.5) gm/dL Neutrophils # 8.6 H (1.3-7.7) k/uL Lymphocytes # 0.8 L (1.0-4.8) k/uL PT (9.0-12.0) sec INR (<1.2) D-Dimer (<0.60) mg/L FEU Sodium 132 L (137-145) mmol/L Carbon Dioxide 20 L (22-30) mmol/L BUN 21 H (9-20) mg/dL Creatinine 1.26 H (0.66-1.25) mg/dL Glucose 121 H (74-99) mg/dL Total Bilirubin 3.0 H (0.2-1.3) mg/dL AST 80 H (17-59) U/L ALT 97 H (4-49) U/L Alkaline Phosphatase 136 H (38-126) U/L Troponin I (0.000-0.034) ng/mL Urine Protein 2+ H (Negative) Urine Glucose (UA) Trace H (Negative) Urine Bilirubin 1+ H (Negative) Urine RBC 20 H (0-5) /hpf Urine WBC 18 H (0-5) /hpf Hyaline Casts 359 H (0-2) /lpf Urine Mucus Many H (None) /hpf 01/07/ Range/Units 09:09 WBC (3.8-10.6) k/uL RBC (4.30-5.90) m/uL Hgb (13.0-17.5) gm/dL Neutrophils # (1.3-7.7) k/uL Lymphocytes # (1.0-4.8) k/uL PT 13.7 H (9.0-12.0) sec INR 1.3 H (<1.2) D-Dimer 0.60 H (<0.60) mg/L FEU Sodium (137-145) mmol/L Carbon Dioxide (22-30) mmol/L BUN (9-20) mg/dL Creatinine (0.66-1.25) mg/dL Glucose (74-99) mg/dL Total Bilirubin (0.2-1.3) mg/dL AST (17-59) U/L ALT (4-49) U/L Alkaline Phosphatase (38-126) U/L Troponin I (0.000-0.034) ng/mL Urine Protein (Negative) Urine Glucose (UA) (Negative) Urine Bilirubin (Negative) Urine RBC (0-5) /hpf Urine WBC (0-5) /hpf Hyaline Casts (0-2) /lpf Urine Mucus (None) /hpf Microbiology - Last 24 Hours (Table) 01/07/21 07:15 Urine Culture - Preliminary Urine,Clean Catch Assessment and Plan (1) Angina at rest Current Visit: Yes Status: Acute Code(s): I20.8 - OTHER FORMS OF ANGINA PECTORIS SNOMED Code(s): 590547748 (2) Elevated troponin Current Visit: Yes Status: Acute Code(s): R77.8 - OTHER SPECIFIED ABNORMALITIES OF PLASMA PROTEINS SNOMED Code(s): 862256276 (3) Acute kidney injury Current Visit: Yes Status: Acute Code(s): N17.9 - ACUTE KIDNEY FAILURE, UN SPECIFIED SNOMED Code(s): 18664844 (4) Fever Current Visit: Yes Status: Acute Code(s): R50.9 - FEVER, UNSPECIFIED SNOMED Code(s): 912667133 Plan: Rule out type of marker infarction although acute kidney injury could be causing elevated troponin spell. Consult home medications. Await cardiology input. The patient is otherwise a full code. Time with Patient: Greater than 30
--- NOTE | 2021-01-07 15:14 | CT ---
EXAMINATION TYPE: CT abdomen pelvis wo con DATE OF EXAM: 01/07/2021 COMPARISON: 11/14/2014 HISTORY: fever, elevated LFT CT DLP: 1037 mGycm Examination of the solid and hollow viscera is limited given the lack of contrast. FINDINGS: LUNG BASES: No evidence for nodule. Linear basilar atelectasis or parenchymal scarring. Small left ef fusion. LIVER/GB: The gallbladder is unremarkable. No space-occupying hepatic lesion. PANCREAS: No pancreatic mass identified. No inflammatory process seen. SPLEEN: No evidence for splenomegaly. No intrasplenic lesions seen. ADRENALS: No adrenal nodules identified. No evidence for thickening. KIDNEYS: No evidence for renal mass. No nephrolithiasis. No hydronephrosis. BOWEL: Appendix has a normal appearance. No evidence of bowel obstruction. No inflammatory process. Lymph nodes: No evidence for adenopathy greater than 1 cm. 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 Ectasia without aneurysm left c ommon iliac artery. Atheromatous change abdominal aorta without aneurysm. Genital organs: No significant abnormality. Other: No significant abnormality. IMPRESSION: NO SIGNIFICANT ABNORMALITY TO ACCOUNT FOR THE PATIENT'S SYMPTOMS.
[2021-01-07] MEDS ORDERED: WARFARIN 7.5 MG TAB PO ONE (18:00)
[2021-01-07] MEDS ORDERED: WARFARIN 5 MG TAB PO ONE (18:00)
[2021-01-07] MEDS: ONDANSETRON 4 MG/2 ML VIAL IVP PRN (20:54)
--- NOTE | 2021-01-07 23:26 | P.CONS ---
History of Present Illness - Reason for Consult Consult date: 01/07/21 Fever Requesting physician: Gregory Giron - Chief Complaint weakess and body aches x few days - History of Present Illness History of present illness : Patient is 65-year-old male presenting to the ER last night for evaluation of fatigue and possible concern for COVID-19 infection patient symptom has been going on since the wednesday night patient been feeling weak and fatigued all over did have myalgias he did have some chills and a fever however he did not take his temperature patient denies having any headache or URI symptoms denies having any chest pain or shortness of breath he did have a mild cough not bringing up any sputum no nausea no vomiting no abdominal pain no diarrhea no loss of taste or smell patient on presentation to the hospital did have a fever of 101.9 degree form height patient also have a elevated white count of 12.1 with a left shift D-dimer was mildly elevated patient also have a elevated liver enzyme and troponin urine was mildly positive weems PCR came back negative patient did have ultrasound of the gallbladder it was negative for acute abnormality patient was started on heparin per weight- based protocol received a dose of Levaquin infectious disease was consulted because of his fever Review of system: CONSTITUTIONAL: Positive for weakness along with the fever. EYES: No complaint. ENT: No complaint. RESPIRATORY: As per history of present illness. CARDIOVASCULAR: No complaint. GENITOURINARY: No complaint. GASTROINTESTINAL: No complaint. MUSCULOSKELETAL: No complaint. INTEGUMENTARY: No complaint. PSYCHOLOGIC: No complaint. ENDOCRINE: No complaint. NEUROLOGIC: No complaint. Past medical history : Reviewed, documented below Past surgical history : Reviewed, documented below Social history: Reviewed, documented below Medications: Reviewed, as documented below EXAMINATION: Vital sigans= Reviewed and documented below GENERAL DESCRIPTION: Middle-aged male lying in bed, no distress. No tachypnea or accessory muscle of respiration use. HEENT: Shows Pallor , no scleral icterus. Oral mucous membrane is dry. NECK: Trachea central, no thyromegaly. LUNGS: Unlabored breathing. Decreased breath sound at the base. No wheeze or crackle. HEART: S1, S2, regular rate and rhythm. ABDOMEN: Soft, right upper quadrant tenderness , no guarding or rigidity EXTREMITIES: No edema of feet. SKIN: No rash, no masses palpable. NEUROLOGICAL: The patient is awake, alert, oriented x3, mood and affect normal. LABS AND RADIOLOGY: Reviewed results see below Assessment : 1-patient presented to hospital with weakness myalgias in this patient who did have a fever did have elevated white count the patient has been tender right upper quadrant area with elevated liver enzyme high clinic suspicious for ascending cholangitis/hepatobiliary source for his fever and will need to cover for the enteric gram-negative with a likely pathogen Plan: 1-we will obtain CT of abdominal pelvis with oral contrast due to her intra-abdominal pathology 2-Rocephin 1 g daily will be added 3-repeat UA and inflammatory markers We will follow on clinical condition and cultures to further adjust medication if needed Thank you for this consultation we will follow the patient along with you Past Medical History Past Medical History: COPD, GERD/Reflux Additional Past Medical History / Comment(s): DYSPHAGIA, RECENT BRONCHITIS History of Any Multi-Drug Resistant Organisms: None Reported Past Surgical History: Orthopedic Surgery Additional Past Surgical History / Comment(s): ORIF RIGHT WRIST Past Anesthesia/Blood Transfusion Reactions: No Reported Reaction Past Psychological History: No Psychological Hx Reported Smoking Status: Former smoker Past Alcohol Use History: Occasional Past Drug Use History: None Reported Medications and Allergies Home Medications Medication Instructions Recorded Confirmed Type Aspirin EC [Ecotrin Low Dose] 81 mg PO HS 10/15/18 01/06/21 History [place]-3 Fatty Acids/Fish Oil [Fish 1 cap PO HS 10/15/18 01/06/21 History Oil 1,000 mg Softgel] Warfarin [Coumadin] 5 mg PO SUMOTUTHFRSA@2100 10/15/18 01/06/21 History Omeprazole Magnesium [PriLOSEC OTC] 20 mg PO 01/06/21 01/06/21 History Allergies Allergy/AdvReac Type Severity Reaction Status Date / Time No Known Allergies Allergy Verified 01/07/21 18:49 Physical Exam Vitals: Vital Signs Temp Pulse Resp BP Pulse Ox 01/07/21 10:46 101 H 18 139/84 96 01/07/21 06:00 98.9 F 88 16 94/72 97 01/07/21 03:00 81 18 85/65 95 01/07/21 00:00 82 18 115/73 97 01/06/21 21:40 98/78 01/06/21 21:00 99.6 F 104 H 95 01/06/21 19:30 101.9 F H 114 H 22 108/71 92 L 01/06/21 17:58 99.5 F 117 H 20 137/84 94 L Intake and Output 01/06/21 01/07/21 01/07/21 22:59 06:59 14:59 Other: Weight 106.594 kg Results CBC & Chem 7: 01/07/21 03:22 01/07/21 03:22 Labs: Abnormal Lab Results - Last 24 Hours (Table) 01/06/21 01/06/21 01/06/21 Range/Units 18:55 18:55 18:55 WBC 12.1 H (3.8-10.6) k/uL RBC (4.30-5.90) m/uL Hgb (13.0-17.5) gm/dL Neutrophils # 10.5 H (1.3-7.7) k/uL Lymphocytes # 0.8 L (1.0-4.8) k/uL PT 16.0 H (9.0-12.0) sec INR 1.6 H (<1.2) D-Dimer (<0.60) mg/L FEU Sodium 132 L (137-145) mmol/L Carbon Dioxide 19 L (22-30) mmol/L BUN (9-20) mg/dL Creatinine (0.66-1.25) mg/dL Glucose 129 H (74-99) mg/dL Total Bilirubin 2.6 H (0.2-1.3) mg/dL AST 77 H (17-59) U/L ALT 89 H (4-49) U/L Alkaline Phosphatase 157 H (38-126) U/L Troponin I (0.000-0.034) ng/mL Urine Protein (Negative) Urine Glucose (UA) (Negative) Urine Bilirubin (Negative) Urine RBC (0-5) /hpf Urine WBC (0-5) /hpf Hyaline Casts (0-2) /lpf Urine Mucus (None) /hpf 01/06/21 01/06/21 01/07/21 Range/Units 18:55 22:23 00:58 WBC (3.8-10.6) k/uL RBC (4.30-5.90) m/uL Hgb (13.0-17.5) gm/dL Neutrophils # (1.3-7.7) k/uL Lymphocytes # (1.0-4.8) k/uL PT (9.0-12.0) sec INR (<1.2) D-Dimer (<0.60) mg/L FEU Sodium (137-145) mmol/L Carbon Dioxide (22-30) mmol/L BUN (9-20) mg/dL Creatinine (0.66-1.25) mg/dL Glucose (74-99) mg/dL Total Bilirubin (0.2-1.3) mg/dL AST (17-59) U/L ALT (4-49) U/L Alkaline Phosphatase (38-126) U/L Troponin I 0.370 H* 0.371 H* 0.329 H* (0.000-0.034) ng/mL Urine Protein (Negative) Urine Glucose (UA) (Negative) Urine Bilirubin (Negative) Urine RBC (0-5) /hpf Urine WBC (0-5) /hpf Hyaline Casts (0-2) /lpf Urine Mucus (None) /hpf 01/07/21 01/07/21 01/07/21 Range/Units 03:22 03:22 07:15 WBC (3.8-10.6) k/uL RBC 4.04 L (4.30-5.90) m/uL Hgb 12.9 L (13.0-17.5) gm/dL Neutrophils # 8.6 H (1.3-7.7) k/uL Lymphocytes # 0.8 L (1.0-4.8) k/uL PT (9.0-12.0) sec INR (<1.2) D-Dimer (<0.60) mg/L FEU Sodium 132 L (137-145) mmol/L Carbon Dioxide 20 L (22-30) mmol/L BUN 21 H (9-20) mg/dL Creatinine 1.26 H (0.66-1.25) mg/dL Glucose 121 H (74-99) mg/dL Total Bilirubin 3.0 H (0.2-1.3) mg/dL AST 80 H (17-59) U/L ALT 97 H (4-49) U/L Alkaline Phosphatase 136 H (38-126) U/L Troponin I (0.000-0.034) ng/mL Urine Protein 2+ H (Negative) Urine Glucose (UA) Trace H (Negative) Urine Bilirubin 1+ H (Negative) Urine RBC 20 H (0-5) /hpf Urine WBC 18 H (0-5) /hpf Hyaline Casts 359 H (0-2) /lpf Urine Mucus Many H (None) /hpf 01/07/21 Range/Units 09:09 WBC (3.8-10.6) k/uL RBC (4.30-5.90) m/uL Hgb (13.0-17.5) gm/dL Neutrophils # (1.3-7.7) k/uL Lymphocytes # (1.0-4.8) k/uL PT 13.7 H (9.0-12.0) sec INR 1.3 H (<1.2) D-Dimer 0.60 H (<0.60) mg/L FEU Sodium (137-145) mmol/L Carbon Dioxide (22-30) mmol/L BUN (9-20) mg/dL Creatinine (0.66-1.25) mg/dL Glucose (74-99) mg/dL Total Bilirubin (0.2-1.3) mg/dL AST (17-59) U/L ALT (4-49) U/L Alkaline Phosphatase (38-126) U/L Troponin I (0.000-0.034) ng/mL Urine Protein (Negative) Urine Glucose (UA) (Negative) Urine Bilirubin (Negative) Urine RBC (0-5) /hpf Urine WBC (0-5) /hpf Hyaline Casts (0-2) /lpf Urine Mucus (None) /hpf Microbiology - Last 24 Hours (Table) 01/07/21 07:15 Urine Culture - Preliminary Urine,Clean Catch
[2021-01-08 00:05] LABS: Amorphous Sediment,Urine Occasional /hpf; Appearance,Urine Cloudy (Clear); Bacteria,Urine Rare /hpf; Bilirubin,Urine 1+ (Negative); Blood,Urine Moderate (Negative); Color,Urine Dark Yellow; Glucose,Urine (UA) Negative (Negative); Granular Casts,Urine 5 /lpf (0); Ketones,Urine 2+ (Negative); Leukocyte Esterase,Urine Negative (Negative); Mucus,Urine Rare /hpf; Nitrite,Urine Negative (Negative); PH, Urine 5.5 (5.0-8.0); Protein,Urine 1+ (Negative); RBC,Urine <1 /hpf (0-5); Specific Gravity,Urine 1.026 (1.001-1.035); Squamous Epithelial Cell,Urine <1 /hpf (0-4); WBC,Urine 6 /hpf (0-5)
[2021-01-08 02:56] LABS: Basophils % (A) 0 %; Eosinophils # (A) 0.1 k/uL (0-0.7); Eosinophils % (A) 1 %; HCT 39.6 % (39.0-53.0); HGB 13.1 gm/dL (13.0-17.5); Lymphocytes # (A) 0.6 k/uL (1.0-4.8); Lymphocytes % (A) 6 %; MCH 32.9 pg (25.0-35.0); MCV 99.6 fL (80.0-100.0); Mean Platelet Volume 7.3; Monocytes # (A) 0.6 k/uL (0-1.0); Monocytes % (A) 6 %; Neutrophils # (A) 8.9 k/uL (1.3-7.7); Neutrophils % (A) 86 %; Platelet Count 197 k/uL (150-450); RBC 3.98 m/uL (4.30-5.90); RDW 12.7 % (11.5-15.5); WBC 10.4 k/uL (3.8-10.6)
[2021-01-08 03:14] LABS: INR 1.4 (<1.2); Partial Thromboplastin Time 48.5 sec (22.0-30.0); Prothrombin Time 14.2 sec (9.0-12.0)
[2021-01-08] MEDS: SODIUM CHLORIDE 0.9% 1,000 ML IV SCH ×3 (03:52→20:35)
[2021-01-08] MEDS: PANTOPRAZOLE 40 MG/10 ML VIAL IV SCH (08:25)
[2021-01-08] MEDS: ASPIRIN 81 MG PO SCH (08:25)
[2021-01-08] MEDS: COLCHICINE 0.6 MG EACH PO SCH ×2 (08:25→21:55)
[2021-01-08] MEDS: LEVOFLOXACIN 750MG-D5W PMX 750 MG in DEXTROSE/WATER 1 150ML.BAG IVPB SCH (09:38)
--- NOTE | 2021-01-08 10:11 | P.PN ---
Subjective This is a 65-year-old male with a past medical history significant for DVT/PE on Coumadin, GERD, and occasional alcohol use. Patient denies any previous cardiac history and does not follow regularly with a plant scientist. We have been asked to see the patient in consultation for cardiac evaluation. Patient examined at the bedside in the emergency room. Patient states he came to the hospital with a chief complaint of a headache. Patient also reports having chest pain and her mainly since Wednesday. He states the pain felt like a pressure in the middle of his chest. He denied any radiation of the pain. He denied any shortness of sera ath. Patient states the pain is significantly worse with deep inspiration. Patient denies any previous stress test or cardiac catheterization. Patient was also noted to be febrile yesterday with a temperature of 101.9. Patient does have a frequent nonproductive cough at the time of my examination. Testing for influenza A and weems virus were negative. Patient reports a family history of coronary artery disease and states his dad had a heart attack. He is unsure at what age but states his dad when he was around 71 so he believes his dad was fairly young when he had a heart attack. EKG reveals sinus tachycardia with early repolarization Chest xray there is some mild atelectasis at the lung bases which is new compared to old exam. Ultrasound gallbladder: No gallstones or dilated ducts. No focal liver defect. Laboratory data: WBC 10.4. Hemoglobin 12.9. Platelet count 184. Sodium 132. Potassium 4.0. BUN 21. Creatinine 1.26. Bilirubin 3.0. AST 80. ALT 97. Troponin 0.370. 0.371. 0.3-9. Current home cardiac medications include aspirin 81 mg daily and warfarin 5 mg Wednesday and Wednesday01/08/2021 Patient seen and examined sitting up in bed in no acute distress. He denies symptoms of chest pain or shortness of breath. Blood pressure 108/69 heart rate 114 afebrile this morning however did have a temperature of 100.3F last night and maintaining oxygen saturation on nasal cannula. Laboratory data reviewed, blood cultures have been negative thus far, WBC 10.4, hemoglobin 13.1, platelets 197, INR 1.4 and C-reactive protein 31.3. Echocardiogram obtained reveals preserved LV systolic function with ejection fraction 60-65% with a small generalized pericardial effusion noted. PHYSICAL EXAM: GENERAL: Well-developed in no acute distress. HEENT: Head is normocephalic. Pupils are equal, round. Sclerae anicteric. Mucous membranes of the mouth are moist. Neck supple. No JVD or thyromegaly LUNGS: Respirations even and unlabored. Lungs essentially clear to auscultation bilaterally. Frequent coughing noted. HEART: Regular rate and rhythm. S1 and S2 heard. EXTREMITIES: Normal range of motion. No clubbing or cyanosis. Peripheral pulses intact. No lower extremity edema ASSESSMENT: Headache Febrile illness Suspected pericarditis Abnormal troponins, can not rule out underlying CAD Acute kidney injury Elevated bilirubin Elevated LFTs History of DVT/PE, on Coumadin GERD Occasional alcohol use PLAN: Continue colchicine as previously ordered. Repeat BMP and CBC in the morning. Repeat limited echocardiogram to assess effusion in the morning. Nurse practitioner note has been reviewed by physician. Signing provider agrees with the documented findings, assessment, and plan of care. Objective - Vital Signs Vital signs: Vital Signs Temp 99 F 01/08/21 08:00 Pulse 114 H 01/08/21 08:00 Resp 20 01/08/21 08:00 BP 108/69 01/08/21 08:00 Pulse Ox 94 L 01/08/21 08:00 Intake & Output 01/07/21 01/08/21 01/08/21 18:59 06:59 18:59 Intake Total 175.6 Output Total 650 Balance -474.4 Weight 106.594 kg 103 kg Intake: IV 10 Invasive Line 1 10 Intake, IV Titration 165.6 Amount Heparin Sod,Pork in 0.45% 165.6 NaCl 25,000 unit In 0.45 % NaCl 1 250ml.bag @ 9. 381 UNITS/KG/HR 10 mls/hr IV .Q24H [facility] Rx#: [id number] Output: Urine 650 Other: Voiding Method Toilet Toilet Urinal Urinal # Voids 1 - Labs CBC & Chem 7: 01/08/21 02:40 01/07/21 03:22 Labs: Abnormal Lab Results - Last 24 Hours (Table) 01/07/21 01/07/21 01/07/21 Range/Units 09:09 16:46 19:56 RBC (4.30-5.90) m/uL Neutrophils # (1.3-7.7) k/uL Lymphocytes # (1.0-4.8) k/uL PT 13.7 H (9.0-12.0) sec INR 1.3 H (<1.2) APTT 38.8 H 35.3 H (22.0-30.0) sec D-Dimer 0.60 H (<0.60) mg/L FEU C-Reactive Protein (<1.0) mg/dL Urine Protein (Negative) Urine Ketones (Negative) Urine Blood (Negative) Urine Bilirubin (Negative) Urine WBC (0-5) /hpf Amorphous Sediment (None) /hpf Urine Bacteria (None) /hpf Urine Mucus (None) /hpf 01/07/21 01/08/21 01/08/21 Range/Units 23:30 02:40 02:40 RBC 3.98 L (4.30-5.90) m/uL Neutrophils # 8.9 H (1.3-7.7) k/uL Lymphocytes # 0.6 L (1.0-4.8) k/uL PT 14.2 H (9.0-12.0) sec INR 1.4 H (<1.2) APTT 48.5 H (22.0-30.0) sec D-Dimer (<0.60) mg/L FEU C-Reactive Protein (<1.0) mg/dL Urine Protein 1+ H (Negative) Urine Ketones 2+ H (Negative) Urine Blood Moderate H (Negative) Urine Bilirubin 1+ H (Negative) Urine WBC 6 H (0-5) /hpf Amorphous Sediment Occasional H (None) /hpf Urine Bacteria Rare H (None) /hpf Urine Mucus Rare H (None) /hpf 01/08/21 Range/Units 02:40 RBC (4.30-5.90) m/uL Neutrophils # (1.3-7.7) k/uL Lymphocytes # (1.0-4.8) k/uL PT (9.0-12.0) sec INR (<1.2) APTT (22.0-30.0) sec D-Dimer (<0.60) mg/L FEU C-Reactive Protein 31.3 H (<1.0) mg/dL Urine Protein (Negative) Urine Ketones (Negative) Urine Blood (Negative) Urine Bilirubin (Negative) Urine WBC (0-5) /hpf Amorphous Sediment (None) /hpf Urine Bacteria (None) /hpf Urine Mucus (None) /hpf Microbiology - Last 24 Hours (Table) 01/06/21 20:42 Blood Culture - Preliminary Blood No Growth after 24 hours 01/06/21 20:42 Blood Culture - Preliminary Blood No Growth after 24 hours 01/07/21 07:15 Urine Culture - Preliminary Urine,Clean Catch
[2021-01-08] MEDS: IBUPROFEN 400 MG TAB PO PRN ×2 (14:01→23:47)
[2021-01-08] MEDS ORDERED: WARFARIN 7.5 MG TAB PO ONE (18:00)
--- NOTE | 2021-01-08 22:58 | P.PN ---
Subjective Progress Note Date: 01/08/21 Principal diagnosis: Elevated troponin. This is a continuing progress note on a 65-year-old white male essentially admitted for elevated troponin but found to have interabdominal pathology. CT scan of the abdomen is pending. Appreciate multiple consultants including infectious disease and cardiology. Echocardiogram did not show significant issue however. Objective - Vital Signs Vital signs: Vital Signs Temp 98.4 F 01/08/21 19:37 Pulse 100 01/08/21 19:37 Resp 20 01/08/21 19:38 BP 91/52 01/08/21 19:37 Pulse Ox 96 01/08/21 19:37 Intake & Output 01/08/21 01/08/21 01/09/21 06:59 18:59 06:59 Intake Total 175.6 10 Output Total 650 150 200 Balance -474.4 -150 -190 Weight 103 kg Intake: IV 10 10 Invasive Line 1 10 10 Intake, IV Titration 165.6 Amount Heparin Sod,Pork in 0.45% 165.6 NaCl 25,000 unit In 0.45 % NaCl 1 250ml.bag @ 9. 381 UNITS/KG/HR 10 mls/hr IV .Q24H [facility] Rx#: [id number] Output: Urine 650 150 200 Other: Voiding Method Toilet Toilet Toilet Urinal Urinal Urinal # Voids 1 - Constitutional General appearance: Present: average body habitus - EENT Eyes: Absent: abnormal pupil - Neck Neck: Absent: lymphadenopathy - Cardiovascular Rhythm: regular Heart sounds: normal: S1, S2 Abnormal Heart Sounds: Absent: S3 Gallop - Gastrointestinal General gastrointestinal: Present: soft. Absent: tenderness - Neurologic Neurologic: Present: CNII-XII intact - Labs CBC & Chem 7: 01/08/21 02:40 01/07/21 03:22 Labs: Abnormal Lab Results - Last 24 Hours (Table) 01/07/21 01/08/21 01/08/21 Range/Units 23:30 02:40 02:40 RBC 3.98 L (4.30-5.90) m/uL Neutrophils # 8.9 H (1.3-7.7) k/uL Lymphocytes # 0.6 L (1.0-4.8) k/uL PT 14.2 H (9.0-12.0) sec INR 1.4 H (<1.2) APTT 48.5 H (22.0-30.0) sec C-Reactive Protein (<1.0) mg/dL Procalcitonin (0.02-0.09) ng/mL Urine Protein 1+ H (Negative) Urine Ketones 2+ H (Negative) Urine Blood Moderate H (Negative) Urine Bilirubin 1+ H (Negative) Urine WBC 6 H (0-5) /hpf Amorphous Sediment Occasional H (None) /hpf Urine Bacteria Rare H (None) /hpf Urine Mucus Rare H (None) /hpf 01/08/21 01/08/21 Range/Units 02:40 02:40 RBC (4.30-5.90) m/uL Neutrophils # (1.3-7.7) k/uL Lymphocytes # (1.0-4.8) k/uL PT (9.0-12.0) sec INR (<1.2) APTT (22.0-30.0) sec C-Reactive Protein 31.3 H (<1.0) mg/dL Procalcitonin 0.73 H (0.02-0.09) ng/mL Urine Protein (Negative) Urine Ketones (Negative) Urine Blood (Negative) Urine Bilirubin (Negative) Urine WBC (0-5) /hpf Amorphous Sediment (None) /hpf Urine Bacteria (None) /hpf Urine Mucus (None) /hpf Microbiology - Last 24 Hours (Table) 01/06/21 20:42 Blood Culture - Preliminary Blood No Growth after 48 hours 01/06/21 20:42 Blood Culture - Preliminary Blood No Growth after 48 hours 01/07/21 07:15 Urine Culture - Final Urine,Clean Catch Assessment and Plan (1) Angina at rest Current Visit: Yes Status: Acute Code(s): I20.8 - OTHER FORMS OF ANGINA PECTORIS SNOMED Code(s): 119655704 (2) Elevated troponin Current Visit: Yes Status: Acute Code(s): R77.8 - OTHER SPECIFIED ABNORMALITIES OF PLASMA PROTEINS SNOMED Code(s): 281714910 (3) Acute kidney injury Current Visit: Yes Status: Acute Code(s): N17.9 - ACUTE KIDNEY FAILURE, UNSPECIFIED SNOMED Code(s): 86726405 (4) Fever Current Visit: Yes Status: Acute Code(s): R50.9 - FEVER, UNSPECIFIED SNOMED Code(s): 791416001 Plan: The patient is morning and feels quite tired. Antibiotic treatment to cover gram-negative will be instituted per infectious disease. Echocardiogram looks fairly nominal from an ejection fraction standpoint. Check CBC and CMP in a.m. To be discharged in next 24-48 hours if the patient stabilizes.
[2021-01-09] MEDS: SODIUM CHLORIDE 0.9% 1,000 ML IV SCH ×2 (03:30→11:02)
[2021-01-09 07:53] LABS: HCT 38.9 % (39.0-53.0); HGB 12.7 gm/dL (13.0-17.5); MCH 32.7 pg (25.0-35.0); MCHC 32.6 g/dL (31.0-37.0); MCV 100.1 fL (80.0-100.0); Mean Platelet Volume 7.4; Platelet Count 214 k/uL (150-450); RBC 3.88 m/uL (4.30-5.90); RDW 12.6 % (11.5-15.5); WBC 7.9 k/uL (3.8-10.6)
[2021-01-09 08:09] LABS: INR 2.3 (<1.2); Partial Thromboplastin Time 32.6 sec (22.0-30.0)
[2021-01-09 08:46] LABS: African American GFR (CKD) >90 (>60 ml/min/1.73 sqM); Anion Gap 6 mmol/L; Blood Urea Nitrogen 16 mg/dL (9-20); Calcium 8.6 mg/dL (8.4-10.2); Carbon Dioxide 23 mmol/L (22-30); Chloride 105 mmol/L (98-107); Glucose 111 mg/dL (74-99); Non-African American GFR(CKD) 83 (>60 ml/min/1.73 sqM); Sodium 134 mmol/L (137-145)
[2021-01-09] MEDS: LEVOFLOXACIN 750MG-D5W PMX 750 MG in DEXTROSE/WATER 1 150ML.BAG IVPB SCH (08:55)
[2021-01-09] MEDS: PANTOPRAZOLE 40 MG/10 ML VIAL IV SCH (08:56)
[2021-01-09] MEDS: COLCHICINE 0.6 MG EACH PO SCH (08:56)
[2021-01-09] MEDS: ASPIRIN 81 MG PO SCH (08:56)
--- NOTE | 2021-01-09 09:23 | PN ---
PROGRESS NOTE DATE OF SERVICE: 01/08/2021 REASON FOR FOLLOWUP: Fever. INTERVAL HISTORY: Patient is currently afebrile. The patient is breathing comfortably. The patient denies having any chest pain. Did have minimal cough. No sputum production. No abdominal pain or diarrhea. PHYSICAL EXAMINATION: Blood pressure 91/52 with a pulse of 100, temperature 98.4. He is 96% on 2 L nasal cannula. General description is a middle-aged male lying in bed in no distress. Respiratory system: Unlabored breathing, decreased breath sounds in the base, with no wheeze. Heart S1, S2. Regular rate and rhythm. Abdomen soft, no tenderness. LABS: Hemoglobin is 13.1, white count 8.4. Procalcitonin 0.73. Repeat urine is mildly positive. DIAGNOSTIC IMPRESSION AND PLAN: Patient admitted to the hospital with fever this patient concern for possible abdomen and pelvis came back negative. The patient's fever responded to the Rocephin and Levaquin to continue while waiting for the culture to finalize and monitor clinical course closely. MMODL / IJN: [id number] /
[2021-01-09] MEDS ORDERED: SODIUM CHLORIDE 0.9% 1,000 ML IV STA (09:33)
[2021-01-09] MEDS ORDERED: METOPROLOL TARTRATE 25 MG TAB PO SCH (09:45)
--- NOTE | 2021-01-09 10:26 | ECHOF ---
Referral Reason:assess effusion MEASUREMENTS -------- HEIGHT: 182.9 cm WEIGHT: 103.0 kg BP: IVSd: 1.3 cm (0.6 - 1.1) LVIDd: 4.5 cm (3.9 - 5.3) LVPWd: 1.5 cm (0.6 - 1.1) IVSs: 1.6 cm LVIDs: 2.4 cm LVPWs: 1.8 cm FINDINGS -------- Limited Study The left ventricular size is normal. There is mild concentric left ventricular hypertrophy. Overa ll left ventricular systolic function is low-normal with, an EF between 50 - 55 %. There is a small, generalized pericardial effusion present. CONCLUSIONS -------- 1. The left ventricular size is normal. 2. There is mild concentric left ventricular hypertrophy. 3. Overall left ventricular systolic function is low-normal with, an EF between 50 - 55 %. 4. There is a small, generalized pericardial effusion present. MOTOR VEHICLES INSPECTOR: Rossi Vanegas RDCS
[2021-01-09] MEDS: ONDANSETRON 4 MG/2 ML VIAL IVP PRN (12:41)
--- NOTE | 2021-01-09 12:47 | P.PN ---
Subjective This is a 65-year-old male with a past medical history significant for DVT/PE on Coumadin, GERD, and occasional alcohol use. Patient denies any previous cardiac history and does not follow regularly with a rn transfer. We have been asked to see the patient in consultation for cardiac evaluation. Patient examined at the bedside in the emergency room. Patient states he came to the hospital with a chief complaint of a headache. Patient also reports having chest pain and her mainly since Wednesday. He states the pain felt like a pressure in the middle of his chest. He denied any radiation of the pain. He denied any shortness of sera ath. Patient states the pain is significantly worse with deep inspiration. Patient denies any previous stress test or cardiac catheterization. Patient was also noted to be febrile yesterday with a temperature of 101.9. Patient does have a frequent nonproductive cough at the time of my examination. Testing for influenza A and weems virus were negative. Patient reports a family history of coronary artery disease and states his dad had a heart attack. He is unsure at what age but states his dad when he was around 71 so he believes his dad was fairly young when he had a heart attack. EKG reveals sinus tachycardia with early repolarization Chest xray there is some mild atelectasis at the lung bases which is new compared to old exam. Ultrasound gallbladder: No gallstones or dilated ducts. No focal liver defect. Laboratory data: WBC 10.4. Hemoglobin 12.9. Platelet count 184. Sodium 132. Potassium 4.0. BUN 21. Creatinine 1.26. Bilirubin 3.0. AST 80. ALT 97. Troponin 0.370. 0.371. 0.3-9. Current home cardiac medications include aspirin 81 mg daily and warfarin 5 mg Wednesday and Wednesday01/09/2021 Pt seen and examined laying flat in bed in no acute distress. He denies chest pain or shortness of breath. He is complaining of a significant headache. This is new for him, he does not typically get headaches. He is holding his head in h is hands. Blood pressure 122/84 heart rate 104 afebrile and maintaining oxygen saturation on room air. Laboratory data reviewed, WBC 7.9, hemoglobin 12.7, platelets 214, INR 2.3, sodium 134, potassium 4 creatinine 0.97. Repeat limited echocardiogram reveals preserved LV systolic function with ejection fraction 50- 55% with ongoing small generalized pericardial effusion. PHYSICAL EXAM: GENERAL: Well-developed in no acute distress. HEENT: Head is normocephalic. Pupils are equal, round. Sclerae anicteric. Mucous membranes of the mouth are moist. Neck supple. No JVD or thyromegaly LUNGS: Respirations even and unlabored. Lungs essentially clear to auscultation bilaterally. Frequent coughing noted. HEART: Regular rate and rhythm. S1 and S2 heard. EXTREMITIES: Normal range of motion. No clubbing or cyanosis. Peripheral pulses intact. No lower extremity edema ASSESSMENT: Headache Febrile illness Suspected pericarditis Abnormal troponins, can not rule out underlying CAD Acute kidney injury Elevated bilirubin Elevated LFTs History of DVT/PE, on Coumadin GERD Occasional alcohol use PLAN: Add lopressor 25 mg BID. Initiate fluids at 75cc/hr. Check viral titers. Repeat covid test. Further recommendations to follow based on clinical course. Nurse practitioner note has been reviewed by physician. Signing provider agrees with the documented findings, assessment, and plan of care. Objective - Vital Signs Vital signs: Vital Signs Temp 98.3 F 01/09/21 08:00 Pulse 104 H 01/09/21 08:00 Resp 18 01/09/21 08:00 BP 122/84 01/09/21 08:00 Pulse Ox 93 L 01/09/21 08:00 Intake & Output 01/08/21 01/09/21 01/09/21 18:59 06:59 18:59 Intake Total 20 118 Output Total 150 200 Balance -150 -180 118 Weight 106.5 kg Intake: IV 20 Invasive Line 1 20 Oral 118 Output: Urine 150 200 Other: Voiding Method Toilet Toilet Urinal Urinal # Voids 2 - Labs CBC & Chem 7: 01/09/21 07:36 01/09/21 07:36 Labs: Abnormal Lab Results - Last 24 Hours (Table) 01/08/21 01/09/21 01/09/21 Range/Units 02:40 07:36 07:36 RBC 3.88 L (4.30-5.90) m/uL Hgb 12.7 L (13.0-17.5) gm/dL Hct 38.9 L (39.0-53.0) % MCV 100.1 H (80.0-100.0) fL PT (9.0-12.0) sec INR (<1.2) APTT (22.0-30.0) sec Sodium 134 L (137-145) mmol/L Glucose 111 H (74-99) mg/dL Procalcitonin 0.73 H (0.02-0.09) ng/mL 01/09/21 Range/Units 07:36 RBC (4.30-5.90) m/uL Hgb (13.0-17.5) gm/dL Hct (39.0-53.0) % MCV (80.0-100.0) fL PT 22.0 H (9.0-12.0) sec INR 2.3 H (<1.2) APTT 32.6 H (22.0-30.0) sec Sodium (137-145) mmol/L Glucose (74-99) mg/dL Procalcitonin (0.02-0.09) ng/mL Microbiology - Last 24 Hours (Table) 01/06/21 20:42 Blood Culture - Preliminary Blood No Growth after 48 hours 01/06/21 20:42 Blood Culture - Preliminary Blood No Growth after 48 hours 01/07/21 07:15 Urine Culture - Final Urine,Clean Catch
--- NOTE | 2021-01-09 14:20 | P.DS ---
Providers Date of admission: 01/06/21 20:25 Attending physician: Gregory Giron Consults: 01/06/21 20:24 Consult Physician Urgent Consulting Provider: Nael Monet Consult Reason/Comments: fever Do you want consulting provider notified?: Yes Consult Physician Urgent Consulting Provider: Mike River Consult Reason/Comments: cardiac eval and tx Do you want consulting provider notified?: Already Contacted Primary care physician: Gregory Giron - Discharge Diagnosis(es) (1) Angina at rest Current Visit: Yes Status: Acute (2) Elevated troponin Current Visit: Yes Status: Acute (3) Acute kidney injury Current Visit: Yes Status: Acute (4) Fever Current Visit: Yes Status: Acute Hospital Course: This is a discharge summary 65-year-old white male essentially admitted for severe chest pain. He was worried that he had pneumonia process. Chest x-ray was negative. But he had significant elevation of troponin. Pericarditis was in the differential diagnosis. The patient was placed on appropriate antibiotic treatment and Did show pericardial fluid but not over pericarditis. The patient was stabilized with appropriate treatment and when cleared by cardiology will be discharged. He is to follow-up with me in 5-7 days. Patient Condition at Discharge: Serious Plan - Discharge Summary Discharge Rx Participant: No New Discharge Prescriptions: New Colchicine [Colcrys] 0.6 mg PO BID #14 each Cefuroxime Axetil [Ceftin] 500 mg PO BID 7 Days #14 tab Metoprolol Tartrate [Lopressor] 25 mg PO BID #60 tab Ibuprofen [Motrin] 400 mg PO Q6HR PRN #120 tab PRN Reason: Mild Pain Or Fever > 100.5 Continue Aspirin EC [Ecotrin Low Dose] 81 mg PO HS Warfarin [Coumadin] 5 mg PO SUMOTUTHFRSA@2100 [place]-3 Fatty Acids/Fish Oil [Fish Oil 1,000 mg Softgel] 1 cap PO HS Omeprazole Magnesium [PriLOSEC OTC] 20 mg PO HS Discharge Medication List Aspirin EC [Ecotrin Low Dose] 81 mg PO HS 10/15/18 [History] [place]-3 Fatty Acids/Fish Oil [Fish Oil 1,000 mg Softgel] 1 cap PO HS 10/15/18 [History] Warfarin [Coumadin] 5 mg PO SUMOTUTHFRSA@2100 10/15/18 [History] Omeprazole Magnesium [PriLOSEC OTC] 20 mg PO HS 01/06/21 [History] Cefuroxime Axetil [Ceftin] 500 mg PO BID 7 Days #14 tab 01/09/21 [Rx] Colchicine [Colcrys] 0.6 mg PO BID #14 each 01/09/21 [Rx] Ibuprofen [Motrin] 400 mg PO Q6HR PRN #120 tab 01/09/21 [Rx] Metoprolol Tartrate [Lopressor] 25 mg PO BID #60 tab 01/09/21 [Rx] Follow up Appointment(s)/Referral(s): Jaxon Pearson MD [STAFF PHYSICIAN] - 2 Weeks Gregory Giron MD [Primary Care Provider] - 1-2 days Discharge Disposition: HOME SELF-CARE
[2021-01-09 14:29] VITALS: BP 127/83; PULSE 105; RESP 17; TEMP 98.4
[2021-01-09] MEDS ORDERED: WARFARIN 5 MG TAB PO ONE (18:00)
--- NOTE | 2021-01-13 11:50 | CDI ---
Documentation Clarification Form Date: 01/13/2021 11:41:10 AM From: Curly Rodgers Admit Date: 01/06/2021 08:25:00 PM Patient Name: Juan Dos Santos Visit Number: [id number] Discharge Date: 01/09/2021 03:29:00 PM ATTENTION: The Clinical Documentation Specialists (CDI) and [facility] Coding Staff appreciate your assistance in clarifying documentation. Please respond to the clarification below the line at the bottom and electronically sign. The CDI & [facility] Coding staff will review the response and follow-up if needed. Please note: Queries are made part of the Legal Health Record. If you have any questions, please contact the author of this message via ITS. Dr. Gregory Giron The patients principal diagnosis the diagnosis that was chiefly responsible for the admission - has not been clearly identified and clarification is requested. Discharge summary indicates possible pericarditis but then states not overly so. Also had a diagnosis of acute renal failure. The patient presented with the following: chest pain, elevated troponin, ARF, pericardial fluid History/Risk factors: Clinical Indicators: Lab findings: elevated troponin Radiology findings: pericardial fluid Vital Signs: Treatment: IV abx, IV fluids Consults: In your professional opinion, can you please clarify which diagnosis, after study, was the reason chiefly responsible for the admission? [ ] pericarditis [ ] acute renal failure [ ] Other, please specify [ ] Unable to determine [ } both pericarditis and acute renal failure [ ] cholangitis MTDD
[2021-01-13 13:36] LABS: Parvovirus B-19 IgG Antibodies 2.71 INDEX (<=0.90); Parvovirus B-19 IgM Antibodies 0.29 INDEX (<=0.90)
== END 2021-01-09 15:29 | disposition home or self-care (01) ==
LOC: EC 17:00 → INTOOBSV 20:25 → 3SCARD 20:25 → UNDODISIN 01-09 15:29
PROVIDERS: ADMIT Family Medicine; ATTEND Family Medicine
DX: I20.9 Angina pectoris, unspecified (principal); R79.89 Other specified abnormal findings of blood chemistry; N17.9 Acute kidney failure, unspecified; R50.9 Fever, unspecified; Z20.822 Contact with and (suspected) exposure to COVID-19; I31.9 Disease of pericardium, unspecified; J98.11 Atelectasis; R05 Cough; R51.9 Headache, unspecified; R00.0 Tachycardia, unspecified; J44.9 Chronic obstructive pulmonary disease, unspecified; K21.9 Gastro-esophageal reflux disease without esophagitis; R77.8 Other specified abnormalities of plasma proteins; Z88.0 Allergy status to penicillin; Z79.01 Long term (current) use of anticoagulants; Z86.711 Personal history of pulmonary embolism; Z86.718 Personal history of other venous thrombosis and embolism; Z87.891 Personal history of nicotine dependence; Z82.49 Family history of ischemic heart disease and other diseases of the circulatory system
CPT/HCPCS: 99285; 96376 ×3; 96361 ×3; 96366 ×4; 96367; 96375 ×2; 96368; 96365; 94760; 93005; 93308; 93306; 86747 ×2; 85379; 83880; 80053 ×2; 80048; 82150; 82550; 83605; 83690; 84484 ×2; 85025 ×3; 85027; 86658; 85610 ×4; 85730 ×4; 86140; 81001 ×2; 87040; 87086; 87502; 84145; 87635 ×2; 71046; 76705; 74176; G0378 ×4; J2405 ×2; J0696 ×3; J1644 ×2; J1956 ×4; C9113 ×3

== ENCOUNTER → 2021-08-25 | Outpatient (CLI) | payer MEDICARE ==
[2021-08-25 14:46] LABS: African American GFR (CKD) 91.8 (60.0-200.0); Blood Urea Nitrogen 12.4 mg/dL (9.0-27.0); Calcium 9.3 mg/dL (8.7-10.3); Carbon Dioxide 22.4 mmol/L (20.0-27.5); Chloride 104 mmol/L (96-109); Glucose 92 mg/dL (70-110); Non-African American GFR(CKD) 79.2 (60.0-200.0); Potassium 4.1 mmol/L (3.5-5.5); Sodium 137 mmol/L (135-145)
== END | disposition home or self-care (01) ==
LOC: LABWHC1 09:23
PROVIDERS: ATTEND Nurse Practitioner
DX: R53.83 Other fatigue (principal)
CPT/HCPCS: 36415; 80048; 84443

== ENCOUNTER → 2024-08-03 | Outpatient (CLI) | payer MEDICARE ==
[2024-08-03 15:01] LABS: Basophils # (A) 0.04 X 10*3/uL (0.00-0.10); Basophils % (A) 0.8 %; Eosinophils # (A) 0.04 X 10*3/uL (0.04-0.35); Eosinophils % (A) 0.8 %; HGB 14.2 g/dL (13.0-17.0); Lymphocytes # (A) 1.71 X 10*3/uL (0.90-5.00); Lymphocytes % (A) 35.8 %; MCHC 33.8 g/dL (32.0-37.0); MCV 94.6 FL (80.0-97.0); Mean Platelet Volume 9.9 FL (9.5-12.2); Monocytes # (A) 0.58 X 10*3/uL (0.20-1.00); Monocytes % (A) 12.2 %; NRBC Per 100 WBC 0 X 10*3/uL (0.00-0.01); Neutrophils # (A) 2.39 X 10*3/uL (1.80-7.70); Neutrophils % (A) 50.2 %; Platelet Count 190 X 10*3/uL (140-440); RBC 4.44 X 10*6/uL (4.40-5.60); RDW 12.9 % (11.5-14.5); WBC 4.77 X 10*3/uL (4.50-10.00)
[2024-08-03 15:35] LABS: BUN/Creat Ratio 18.78 Ratio (12.00-20.00); Blood Urea Nitrogen 16.9 mg/dL (9.0-27.0); Calcium 9.4 mg/dL (8.7-10.3); Carbon Dioxide 23.4 mmol/L (21.6-31.8); Chloride 102 mmol/L (96-109); Glucose 107 mg/dL (70-110); Potassium 4.2 mmol/L (3.5-5.5); Sodium 137 mmol/L (135-145)
[2024-08-03 21:41] LABS: Appearance,Urine Clear (Clear); Bilirubin,Urine Negative (Negative); Blood,Urine Negative (Negative); Color,Urine Yellow (Yellow); Ketones,Urine Negative (Negative); Nitrite,Urine Negative (Negative); PH, Urine 6.5; Specific Gravity,Urine 1.011 (1.001-1.030); Urobilinogen,Urine 0.2 E.U./DL
== END | disposition home or self-care (01) ==
LOC: LABPAT 10:01
PROVIDERS: ATTEND Urology
DX: Z01.818 Encounter for other preprocedural examination (principal); I49.3 Ventricular premature depolarization; R94.31 Abnormal electrocardiogram [ECG] [EKG]
CPT/HCPCS: 80048; 81003; 85025; 87086

== ENCOUNTER → 2024-09-26 | Outpatient (CLI) | payer MEDICARE ==
--- NOTE | 2024-10-10 00:18 | P.PCN ---
Date of Procedure: 10/26/24 Operative Findings: Home sleep study report Date of service is 09/26/2024 History This is a 68-year-old male patient with known history obstructive sleep apnea with an AHI of 27. The patient is not utilizing CPAP therapy for now. The patient has had difficulty tolerating APAP therapy in the past which was set at a pressures of 5/10 cm of water. He has been able to lose weight and the patient has lost approximately 11 pounds over the past 1 year. The patient continues to have difficulty tolerating his CPAP unit. A follow-up home sleep study was ordered to assess presence of sleep apnea and discussed alternative treatments. The patient is known to have previous history of pulmonary embolism maintained on anticoagulation with warfarin. He was also previous history of DVT. Pertinent physical findings The BMI is 29.3 with a weight of 228 Technical description The [employer] system was used to complete his home sleep study. This is a type III home sleep study evaluation. The total recording duration was 7 hours and the patient's study started 11:18 PM and ended at 6:18 AM. There was a total of 6 hours and 49 minutes of flow monitoring and 6 hours and 49 minutes of oxygen saturation monitoring. This was an adequate study. Results Respiratory analysis showed a total of 52 obstructive apneas and 145 obstructive hypopneas. The resulting AHI was 28.9 consistent moderately severe obstructive sleep apnea. The disease was worse in a supine body position with an AHI of 41.3 while being supine. Oxygenation analysis The patient had a baseline pulse ox of 94% while awake. Average pulse ox during sleep was 91% and the minimum pulse ox was 78%. Patient spent approximately 36 minutes of the sleep time below pulse ox of 89% Cardiac summary The average heart rate was 80 with a minimum heart rate of 65 and a maximum heart rate of 113 Assessment Obstructive sleep apnea, moderately severe with an AHI of 28.9. Disease was worse in supine body position. Continues to have some mild nocturnal oxygen desaturations. Patient has failed CPAP therapy in the past due to poor tolerability. Plan Will discuss alternative treatments with the patient. Consider hypoglossal nerve stimulation therapy/inspire. Another option will be mandibular advancement devices. The patient will be encouraged to lose more weight. He will be seeing me in the office for further discussion. Alternative treatment will be discussed accordingly.
== END ==
LOC: 3 N SLEEP 16:59
PROVIDERS: ATTEND Internal Medicine Critical Care Medicine
DX: G47.33 Obstructive sleep apnea (adult) (pediatric) (principal); Z87.891 Personal history of nicotine dependence